=== PATIENT | male | born 1960 | race Caucasian/White ===

== ENCOUNTER 2022-06-26 07:45 | Inpatient (IN) | payer OTHER, SELFPAY ==
[2022-06-26] VITALS (18 sets, daily range): BP systolic 96–152; BP diastolic 53–80; PULSE 66–111; RESP 18–25; TEMP 36.7–37.6; O2SAT 91–99; BMI 30.4; BMI 30.6; BMI 31.4
--- NOTE | 2022-06-26 07:47 | XR_ITS ---
FINAL REPORT CLINICAL HISTORY: SOA, COPD FINDINGS: PORTABLE CHEST The heart is normal in size. The mediastinum is unremarkable. There is dense right lower lobe consolidation medially which is consistent with acute pneumonia. The left lung is clear. There is no pneumothorax. IMPRESSION: Dense right lower lobe consolidation medially, consistent with acute pneumonia. Reviewed, Interpreted and Dictated by Bryan Hernadez MD Transcribed by Radha Maynard Authenticated and . [facility]
--- NOTE | 2022-06-26 07:48 | ECG_ITS ---
APPROVED REPORT Exam: Resting ECG HR:109 bpm ECG Measurements Heart Rate 109 AXES QRSd 87 QRS 40 QT 307 T 89 QTc 371 Conclusion SUPRAVENTRICULAR TACHYCARDIA LOW QRS VOLTAGE IN EXTREMITY LEADS [QRS DEFLECTION < 0.5 mV IN LIMB LEADS] SEPTAL MYOCARDIAL INFARCTION , OF INDETERMINATE AGE [40+ ms Q WAVE IN V1/V2] ABNORMAL ECG UNCONFIRMED REPORT Electronically signed by : Brayan Price MD 06/29/2022 16:51:14
[2022-06-26 07:58] LABS: Basophils # 0.1 K/mm3 (0-0.2); Basophils % 0.4 % (0.1-2.0); Eosinophils # 0.1 K/mm3 (0.0-0.4); Eosinophils % 0.6 % (0.1-12.0); Hematocrit 50.6 % (42.0-52.0); Hemoglobin 16.4 g/dL (14.1-18.0); Lymphocytes # 1.9 K/mm3 (0.7-4.5); Lymphocytes % 9.7 % (10-50); Mean Corpuscular HGB Conc 32.4 g/dL (31.8-35.4); Mean Corpuscular Volume 92.4 fl (80-94); Monocytes # 1.1 K/mm3 (0.1-1.0); Monocytes % 5.6 % (1.7-9.3); Neutrophils # 16.3 K/mm3 (1.8-7.8); Neutrophils % 83.7 % (37.0-80.0); Platelet Count 178 K/mm3 (142-424); Red Blood Count 5.48 M/mm3 (4.60-6.20); Red Cell Distribution Width 15.1 % (11.5-17.5); White Blood Count 19.5 K/mm3 (4.8-10.8)
[2022-06-26 08:00] LABS: VBG Base Excess -5.2 mmol/L (-2.4-2.3); VBG PCO2 61.7 mmol/L (35-51); VBG PO2 53.7 mmol/L (28-40); VBG Total CO2 24.9 mmol/L (23-27)
--- NOTE | 2022-06-26 08:00 | PC.NURSE ---
portable CXR at BS
--- NOTE | 2022-06-26 08:03 | PC.NURSE ---
FRANKI JORDAN at
[2022-06-26 08:05] LABS: VBG PH 7.19 mmol/L (7.31-7.41)
[2022-06-26 08:06] LABS: MANUAL DIFFERENTIAL MANUAL DIFFERENTIAL (MANUAL DIFF)
--- NOTE | 2022-06-26 08:11 | HMH.EDGENADL ---
Discharge Plan Disposition Patient Disposition: Admitted As Inpatient Clinical Impressions Clinical Impression: Asthma exacerbation in COPD, CAP (community acquired pneumonia), Acute hypercapnic respiratory failure, Acute respiratory failure with hypoxia, Severe sepsis, Acute renal insufficiency Discharge ED Provider: Serene Schneider General Adult HPI General Chief complaint: Shortness of Breath/Dyspnea Stated complaint: COPD exacerbation Time Seen by Provider: 06/26/22 08:14 History of Present Illness HPI narrative: Patient is a 62-year-old male with a history of COPD presents with 2 days of worsening of his symptoms. States that he is chronically dyspneic at rest chronically has wheezing but over the last 2 days has had significant right lateral chest wall pain dyspnea increasing wheezing increasing productive sputum and profound dyspnea even at rest. States that this feels similar to pneumonia episodes has had in the past and COPD exacerbations. Denies any centralized chest pain any radiation. Did state that he had a fever last night up to 102 took Tylenol ibuprofen. Has not had any antipyretics today. No history of PE or DVT no history of GA he does have a history of diabetes. Related Data Allergies Allergy/AdvReac Type Severity Reaction Status Date / Time Penicillins Allergy Intermediate Rash Verified 06/26/22 08:33 [facility] Disclaimer: The information contained in this section may have been updated after the patient was seen, as this information can be updated by other users. Social History Smoking Status: Unknown if ever smoked alcohol intake: never current occupational status: other Travel in the last 8 weeks: None ROS Obtained: Yes All systems reviewed & no additional complaints except as documented Physical Exam General General appearance: alert and other (In distress) Respiratory Respiratory exam: Present other (In respiratory distress, speaking in fragmented sentences, poor air movement, diffuse expiratory wheezing, prolonged expiratory phase, ox saturations in the low 90s on 2 L nasal cannula) Cardiovascular Cardiovascular exam: Present tachycardia Neurological Exam Neurological exam: Present alert and oriented X3 Medical Decision Making Joseph Inquiry Pt receiving controlled substance: No Joseph was queried for this patient: No Lab Data Lab Results 06/26/22 07:45: WBC 19.5 H, RBC 5.48, Hgb 16.4, Hct 50.6, MCV 92.4, MCH 30.0, MCHC 32.4, RDW 15.1, Plt Count 178, MPV 8.0, Neut % (Auto) 83.7 H, Lymph % (Auto) 9.7 L, Lewis % (Auto) 5.6, Eos % (Auto) 0.6, Baso % (Auto) 0.4, Neut # (Auto) 16.3 H, Lymph # (Auto) 1.9, Lewis # (Auto) 1.1 H, Eos # (Auto) 0.1, Baso # (Auto) 0.1, Total Counted 100, Neutrophils % (Manual) 80 H, Lymphocytes % (Manual) 10, Monocytes % (Manual) 10 H, Platelet Estimate Normal, RBC Morphology Normal 06/26/22 07:45: Sodium 135 L, Potassium 4.7, Chloride 96 L, Carbon Dioxide 28, Anion Gap 15.7 H, BUN 25 H, Creatinine 1.30 H, Estimated Creat Clear 93, Estimated GFR 56 L, Est GFR ( Amer) 68, Glucose 183 H, Calcium 9.1, Total Bilirubin 1.3, AST 29, ALT 27, Alkaline Phosphatase 127 H, Troponin I < 0.01, Total Protein 8.4 H, Albumin 4.4, Globulin 4.0 H, Albumin/Globulin Ratio 1.1 06/26/22 07:47: VBG pH 7.19 L, VBG pCO2 61.7 H, VBG pO2 53.7 H, VBG HCO3 23.0, VBG Total CO2 24.9, VBG O2 Saturation 85.0 H, VBG Base Excess -5.2 L 06/26/22 07:55: Lactate 2.4 H 06/26/22 07:55: Procalcitonin 0.866 Result diagrams: 06/26/22 07:45 06/26/22 07:45 Orders (Tests/Meds): ED MEDICATIONS Generic Name Dose Route Start Last Admin Trade Name Freq PRN Reason Stop Dose Admin Sodium Chloride 1,000 mls @ 999 mls/hr 06/26/22 08:15 06/26/22 08:21 Sod Chlor 0.9% 1000ml Bag IV 06/26/22 09:15 999 mls/hr .Q1H1M ARIELA Administration Magnesium Sulfate 2 gm in 50 mls @ 50 mls/hr 06/26/22 08:07 06/26/22 08:21 Magnesium Sulfate 2gm/50ml Premix IV 06/26/22 09:06
--- NOTE | 2022-06-26 08:11 | PC.NURSE ---
Respiratory at BS
[2022-06-26 08:15] LABS: Alanine Aminotransferase 27 U/L (12-78); Albumin Level 4.4 g/dl (3.5-5.0); Albumin/Globulin Ratio 1.1 (1.1-1.8); Alkaline Phosphatase 127 U/L (38-126); Anion Gap 15.7 mEq/L (5-15); Aspartate Amino Transferase 29 U/L (17-59); Bilirubin,Total 1.3 mg/dl (0.2-1.3); Blood Urea Nitrogen 25 mg/dl (9-20); Calcium 9.1 mg/dl (8.4-10.2); Carbon Dioxide 28 mmol/L (22.0-30.0); Chloride 96 mmol/L (98-107); Creatinine Clearance Estimated 93 mL/min (50-200); Estimated Glomerular Filt Rate 56 ml/min (>60); GFR (African American) 68 ML/MIN (>60); Glucose 183 mg/dl (74-100); Potassium 4.7 mmoL/L (3.5-5.1); Sodium 135 mmol/L (136-145); Total Protein,Serum 8.4 g/dl (6.3-8.2)
[2022-06-26 08:19] LABS: Lactic Acid 2.4 mmol/L (0.7-2.1)
[2022-06-26 08:33] LABS: Troponin I < 0.01 ng/ml (0.00-0.034)
[2022-06-26 08:39] LABS: Procalcitonin 0.866 ng/mL (0.0-2.0)
[2022-06-26 08:40] LABS: Lymphocytes % 10 % (10-50); Monocytes % 10 % (2-9); Neutrophils % 80 % (42-76); Platelet Estimate Normal; RBC Morphology Normal; Total Cells Counted 100
[2022-06-26 09:15] LABS: Coronavirus 19, PCR Not Detected (NotDetected); Influenza A, PCR Not Detected (NotDetected); Influenza B, PCR Not Detected (NotDetected)
--- NOTE | 2022-06-26 09:28 | EXP.HP ---
History of Present Illness *Admission Date: 06/26/22 *Reason for visit:: Short of breath, fever *History of present illness: Mr. Davila is a 62-year-old male with history of COPD, diabetes, hypertension who presented to the ER with 2 to 3 days of worsening shortness of breath, weakness, fever. Presented to the ER via EMS because he was more weak at home and unable to get up and go to the car. His was worried about his condition, stated he was pale, short of breath, having a hard time breathing. Reports that he has been chronically short of breath at rest. Has had worsening wheezing over the past couple days and some right lateral chest pain, worse with cough. Also reports that he has had similar pneumonia episodes in the past with COPD exacerbations. No central chest pain, confusion, nausea, vomiting. Tmax fever last night 102 per his report. Initial work-up concerning for right lower lobe pneumonia on chest x-ray and leukocytosis of 19,000. Medicine consulted for admission. After arriving to the floor, patient is accompanied by his . She states he is looking better after fluids, antibiotics, breathing treatments, and BiPAP. He is currently stable on nasal cannula oxygen. Able to give a good history. [facility] Disclaimer: The information contained in this section may have been updated after the patient was seen, as this information can be updated by other users. Medical History (Updated 06/26/22 @ 11:22 by Will Lynch MD) COPD (chronic obstructive pulmonary disease) DDD (degenerative disc disease) Diabetes mellitus, type 2 Edema Hepatitis C Hepatitis C virus infection cured after antiviral drug therapy History of gastroesophageal reflux (GERD) Hypertension Osteoarthritis Psoriasis Surgical History H/O arthroscopy of right knee Family History Family history of acute congestive heart failure Family history of cancer Family history of hypertension Family history of epilepsy Family history of diabetes mellitus type II Family history of myocardial infarction Social History Smoking Status: Current some day smoker alcohol intake: never current occupational status: retired Travel in the last 8 weeks: None Review of Systems Review of Systems Review of systems (narrative): 14 point review of systems performed, pertinent positives and negatives as per HPI Meds Home Medications and Allergies Home Medications Medication Instructions Recorded Confirmed Type albuterol 90 mcg/actuation aerosol 2 mcg inhalation NEEDED PRN copd 06/26/22 06/26/22 History inhaler budesonide-formoterol HFA 160 2 puff inhalation BID Breathing 06/26/22 06/26/22 History mcg-4.5 mcg/actuation aerosol problems inhaler budesonide-formoterol HFA 160 2 puff inhalation DAILY COPD 06/26/22 06/26/22 History mcg-4.5 mcg/actuation aerosol inhaler buprenorphine 8 mg-naloxone 2 mg 2 film sublingual DAILY Opioid 06/26/22 06/26/22 History sublingual film dependence empagliflozin 25 mg tablet 25 mg PO DAILY Diabetes 06/26/22 06/26/22 History (Jardiance) lisinopril 20 mg tablet 20 mg PO DAILY Blood pressure 06/26/22 06/26/22 History metformin 1,000 mg tablet 1,000 mg PO BID Diabetes 06/26/22 06/26/22 History sitagliptin phosphate 100 mg 100 mg PO DAILY Diabetes 06/26/22 06/26/22 History tablet (Januvia) New Prescriptions to Start Prescriptions: Allergies Allergy/AdvReac Type Severity Reaction Status Date / Time Penicillins Allergy Intermediate Rash Verified 06/26/22 08:33 Exam Data for Last 24 hours Vital signs and Labs for Last 24 Hours: Temp Pulse Resp BP Pulse Ox 99 F 96 H 24 97/53 L 95 06/26/22 07:46 06/26/22 09:10 06/26/22 09:10 06/26/22 09:10 06/26/22 09:10 Laboratory Results - last 24 hr 06/26/22 07:45: WBC 19
[2022-06-26 09:30] LABS: Hemoglobin A1C 6.8 % (4.0-6.0)
--- NOTE | 2022-06-26 09:36 | PC.NURSE ---
Patient report called to ARBEN Hardin
--- NOTE | 2022-06-26 09:43 | PC.NURSE ---
0930: Notified attending patient would be short on 30mL/kg bolus. Map is >65 and patient seems to be profusing well. NAD, VSS otherwise. Notified infection control nurse regarding Sepsis diagnosis chart review.
[2022-06-26 10:06] LABS: ABG Oxygen Saturation 97 % (90-100); ABG PCO2 42.8 mmhg (35.0-45.0); ABG PH 7.27 mmol/L (7.35-7.45); ABG PO2 96.9 mmhg (80-100); ABG TCO2 20.3 mmhg (23-27)
[2022-06-26 10:14] LABS: Oxygen 40% %; Tidal Volume 14/6; Vent Rate 20
[2022-06-26 10:15] LABS: Allen's Test acceptable
--- NOTE | 2022-06-26 10:27 | PC.NURSE ---
Pt arrived to the floor at this time.
[2022-06-26 11:44] LABS: Troponin I < 0.01 ng/ml (0.00-0.034)
--- NOTE | 2022-06-26 11:50 | PC.NURSE ---
Notified pulmonolgy office of consult on pt. Spoke with
[2022-06-26 12:06] LABS: POC Glucose,Bedside 228 (70-110)
[2022-06-26 12:11] LABS: Reflex Lactic Add Lactic Reflex
[2022-06-26 12:56] LABS: Lactic Acid Follow Up (RFLX 1) 2.2 mmol/L (0.7-2.1)
[2022-06-26 14:34] LABS: Reflex Lactic (2 hrs) Add Lactic Reflex
[2022-06-26 15:16] LABS: Troponin I < 0.01 ng/ml (0.00-0.034)
[2022-06-26 15:32] LABS: Lactic Acid Follow up (RFLX 2) 3.7 mmol/L (0.7-2.1)
--- NOTE | 2022-06-26 16:44 | EXP.PULM.CON ---
History of Present Illness History of present illness: Mr. Laboy is a 62-year-old male current smoker greater than 83-oziy-zdit smoking she carries a history of psoriasis currently not on immunosuppressive medications presented to hospital with worsening respiratory distress found to be needing increasing oxygen requirements and pulmonary was called for further evaluation. [facility] Disclaimer: The information contained in this section may have been updated after the patient was seen, as this information can be updated by other users. Medical History (Updated 06/26/22 @ 11:22 by Will Lynch MD) COPD (chronic obstructive pulmonary disease) DDD (degenerative disc disease) Diabetes mellitus, type 2 Edema Hepatitis C Hepatitis C virus infection cured after antiviral drug therapy History of gastroesophageal reflux (GERD) Hypertension Osteoarthritis Psoriasis Surgical History H/O arthroscopy of right knee Family History Family history of acute congestive heart failure Family history of cancer Family history of hypertension Family history of epilepsy Family history of diabetes mellitus type II Family history of myocardial infarction Social History Smoking Status: Current some day smoker alcohol intake: never current occupational status: retired Travel in the last 8 weeks: None Review of Systems Constitutional Constitutional: Reports anorexia, Reports body ache(s) and Reports fatigue Eyes Eyes: Denies eye discharge, Denies dry eyes, Denies irritation and Denies itchy eyes ENT Ears, Nose, Mouth, and Throat: Denies epistaxis, Denies facial pain, Denies lip swelling and Denies throat swelling *Cardiovascular Cardiovascular: Reports dyspnea and Reports dyspnea on exertion *Respiratory Respiratory: Reports chest congestion, Reports cough, Reports dyspnea, Reports dyspnea on exertion, Reports excessive phlegm production, Denies hemoptysis, Denies pain on inspiration and Reports wheezing *Gastrointestinal Gastrointestinal: Denies abdominal pain, Denies belching and Denies cramping *Musculoskeletal Musculoskeletal: Reports back pain, Reports myalgias and Reports other (No small joint swelling or Pain) Psychiatric Psychiatric: Denies homicidal ideation and Denies suicidal ideation Endocrine Endocrine: Reports fatigue and Denies heat intolerance Hematologic/Lymphatic Hematologic/Lymphatic: Denies easy bleeding and Denies lymphadenopathy Allergic/Immunologic Allergic/Immunologic: Denies itchy eyes, Denies lip swelling, Denies throat swelling and Reports wheezing Pulmonology Exam Inpatient Vital signs and Labs for Last 24 Hours: Temp Pulse Resp BP Pulse Ox FiO2 98.9 F 85 22 118/67 94 L 4 06/26/22 16:00 06/26/22 16:00 06/26/22 16:00 06/26/22 16:00 06/26/22 16:00 06/26/22 16:00 Laboratory Results - last 24 hr 06/26/22 07:45: WBC 19.5 H, RBC 5.48, Hgb 16.4, Hct 50.6, MCV 92.4, MCH 30.0, MCHC 32.4, RDW 15.1, Plt Count 178, MPV 8.0, Neut % (Auto) 83.7 H, Lymph % (Auto) 9.7 L, [place] % (Auto) 5.6, Eos % (Auto) 0.6, Baso % (Auto) 0.4, Neut # (Auto) 16.3 H, Lymph # (Auto) 1.9, [place] # (Auto) 1.1 H, Eos # (Auto) 0.1, Baso # (Auto) 0.1, Total Counted 100, Neutrophils % (Manual) 80 H, Lymphocytes % (Manual) 10, Monocytes % (Manual) 10 H, Platelet Estimate Normal, RBC Morphology Normal 06/26/22 07:45: Sodium 135 L, Potassium 4.7, Chloride 96 L, Carbon Dioxide 28, Anion Gap 15.7 H, BUN 25 H, Creatinine 1.30 H, Estimated Creat Clear 93, Estimated GFR 56 L, Est GFR ( Amer) 68, Glucose 183 H, Calcium 9.1, Total Bilirubin 1.3, AST 29, ALT 27, Alkaline Phosphatase 127 H, Troponin I < 0.01, Total Protein 8.4 H, Albumin 4.4, Globulin 4.0 H, Albumin/Globulin Ratio 1.1 06/26/22 07:45: Hemoglobin A1c 6.8 H 06/26/22 07:47: VBG pH 7.19 L, VBG pCO2 61.7 H, VBG pO2 53.7 H, VBG HCO3 23.0, V
[2022-06-26 16:46] LABS: POC Glucose,Bedside 406 (70-110)
[2022-06-26 20:26] LABS: POC Glucose,Bedside 295 (70-110)
[2022-06-27] VITALS (12 sets, daily range): BP systolic 107–123; BP diastolic 61–71; PULSE 68–95; RESP 15–18; TEMP 36.8–37.1; O2SAT 87–97; BMI 32.2
[2022-06-27 05:54] LABS: POC Glucose,Bedside 221 (70-110)
[2022-06-27 06:23] LABS: Basophils % 0.1 % (0.1-2.0); Hematocrit 45.2 % (42.0-52.0); Lymphocytes # 0.8 K/mm3 (0.7-4.5); Lymphocytes % 4.9 % (10-50); Mean Corpuscular HGB Conc 31.1 g/dL (31.8-35.4); Mean Corpuscular Hemoglobin 29.2 pg (27.0-31.2); Mean Corpuscular Volume 93.8 fl (80-94); Mean Platelet Volume 8.3 fl (7.4-10.4); Monocytes % 5.7 % (1.7-9.3); Neutrophils # 14.9 K/mm3 (1.8-7.8); Neutrophils % 89.2 % (37.0-80.0); Platelet Count 192 K/mm3 (142-424); Red Blood Count 4.82 M/mm3 (4.60-6.20); White Blood Count 16.7 K/mm3 (4.8-10.8)
[2022-06-27 06:24] LABS: Alanine Aminotransferase 32 U/L (12-78); Albumin Level 3.6 g/dl (3.5-5.0); Albumin/Globulin Ratio 1.1 (1.1-1.8); Alkaline Phosphatase 130 U/L (38-126); Anion Gap 15.4 mEq/L (5-15); Aspartate Amino Transferase 42 U/L (17-59); Bilirubin,Total 0.4 mg/dl (0.2-1.3); Blood Urea Nitrogen 26 mg/dl (9-20); Calcium 8.7 mg/dl (8.4-10.2); Carbon Dioxide 26 mmol/L (22.0-30.0); Chloride 101 mmol/L (98-107); Creatinine Clearance Estimated 124 mL/min (50-200); Estimated Glomerular Filt Rate 86 ml/min (>60); GFR (African American) 103 ML/MIN (>60); Globulin 3.2 g/dL (1.3-3.2); Glucose 223 mg/dl (74-100); Magnesium 2.8 mg/dl (1.6-2.3); Potassium 4.4 mmoL/L (3.5-5.1); Sodium 138 mmol/L (136-145); Total Protein,Serum 6.8 g/dl (6.3-8.2)
[2022-06-27 06:25] LABS: MANUAL DIFFERENTIAL MANUAL DIFFERENTIAL (MANUAL DIFF)
[2022-06-27 06:53] LABS: Lymphocytes % 14 % (10-50); Monocytes % 2 % (2-9); Neutrophils % 84 % (42-76); Platelet Estimate Normal; RBC Morphology Normal; Total Cells Counted 100
[2022-06-27 06:59] LABS: NT Pro Brain Natriuretic Pep. 1450 pg/mL (0-125)
[2022-06-27 07:07] LABS: Hemoglobin 14.1 g/dL (14.1-18.0)
--- NOTE | 2022-06-27 09:44 | EXP.PULM.PN ---
Subjective *Date: 06/27/22 *Time: 12:07 Interval history: No acute respiratory vents overnight. Patient admits improvement in his respiratory status. Pulmonology Exam Inpatient Vital signs and Labs for Last 24 Hours: Temp Pulse Resp BP Pulse Ox FiO2 98.7 F 80 15 111/61 91 L 36 06/27/22 08:00 06/27/22 04:40 06/27/22 04:00 06/27/22 04:00 06/27/22 04:00 06/26/22 17:37 Laboratory Results - last 24 hr 06/26/22 07:49: SARS-CoV-2 (PCR) Not detected, Influenza A Untype (PCR) Not detected, Influenza Type B (PCR) Not detected 06/26/22 10:00: Specimen Source r radial, O2 % 40%, ABG pH 7.27 L, ABG pCO2 42.8, ABG pO2 96.9, ABG HCO3 19.0 L, ABG Total CO2 20.3 L, ABG O2 Saturation 97, ABG Base Excess -8.0 L, Cooper Test acceptable, Vent Rate 20, Tidal Volume 14/6 06/26/22 11:00: Troponin I < 0.01 06/26/22 11:48: POC Glucose 228 H 06/26/22 12:30: Lactate 2.2 H 06/26/22 14:05: Troponin I < 0.01 06/26/22 15:10: Lactate 3.7 H 06/26/22 16:36: POC Glucose 406 H* 06/26/22 20:18: POC Glucose 295 H 06/27/22 05:27: NT-Pro-B Natriuret Pep 1450 H 06/27/22 05:27: WBC 16.7 H, RBC 4.82, Hgb 14.1 D, Hct 45.2, MCV 93.8, MCH 29.2, MCHC 31.1 L, RDW 15.0, Plt Count 192, MPV 8.3, Neut % (Auto) 89.2 H, Lymph % (Auto) 4.9 L, [place] % (Auto) 5.7, Eos % (Auto) 0.0 L, Baso % (Auto) 0.1, Neut # (Auto) 14.9 H, Lymph # (Auto) 0.8, Spencer # (Auto) 1.0, Eos # (Auto) 0.0, Baso # (Auto) 0.0, Total Counted 100, Neutrophils % (Manual) 84 H, Lymphocytes % (Manual) 14, Monocytes % (Manual) 2, Platelet Estimate Normal, RBC Morphology Normal 06/27/22 05:27: Sodium 138, Potassium 4.4, Chloride 101, Carbon Dioxide 26, Anion Gap 15.4 H, BUN 26 H, Creatinine 0.90 D, Estimated Creat Clear 124, Estimated GFR 86, Est GFR ( Amer) 103 D, Glucose 223 H D, Calcium 8.7, Magnesium 2.8 H, Total Bilirubin 0.4, AST 42 D, ALT 32, Alkaline Phosphatase 130 H, Total Protein 6.8, Albumin 3.6 D, Globulin 3.2, Albumin/Globulin Ratio 1.1 06/27/22 05:45: POC Glucose 221 H I & O for Labs for Last 24 Hours: Intake & Output 06/24/22 06/25/22 06/26/22 06/27/22 23:59 23:59 23:59 23:59 Intake Total 2830 / 2950 600 / 600 Output Total 3025 / 3025 1350 / 1350 Balance -195 / -75 -750 / -750 Weight 244 lb 9 oz 251 lb 6 oz Microbiology Reports for the Last 24 Hours: Microbiology 06/26/22 20:30 Sputum - Expectorated Sputum Gram Stain - Final Constitutional: Present moderate distress Head: Present normocephalic and atraumatic ENT: Present normal exam, normal oropharynx and mucous membranes moist Neck: Present normal inspection and full ROM Respiratory: Present prolonged expiratory phase, respiratory distress, wheezes and able to speak in complete sentences; Absent accessory muscle use Cardiac: Present S1/S2, Tachycardia and radial pulses present GI: Present soft and distention; Absent tenderness or guarding Skin: Present intact; Absent cyanosis or jaundice Neuro: Present alert, awake and oriented x 3 Extremities: Present normal inspection; Absent clubbing or cyanosis Psychiatric: Present normal affect and cooperative Assessment and Plan *Assessment and plan (1) CAP (community acquired pneumonia): Status: Acute Category: Medical Code(s): J18.9 - Pneumonia, unspecified organism (2) Acute respiratory failure with hypoxia: Status: Acute Category: Medical Code(s): J96.01 - Acute respiratory failure with hypoxia Plan Mr. Laboy is a 62-year-old male current smoker greater than 90-ftrl-dgsg smoking she carries a history of psoriasis currently not on immunosuppressive medications presented to hospital with worsening respiratory distress found to be needing increasing oxygen requirements and pulmonary was called for further evaluation. Patient admits frequent episodes of respiratory infections around 3-4 times per year. His most recent flexion was late summer 2021 on did not recovered completely from that. No prior imaging available for review.
--- NOTE | 2022-06-27 10:41 | XR_ITS ---
FINAL REPORT CLINICAL HISTORY: Pneumonia COMPARISON: 06/26/2022 FINDINGS: The heart size is normal. The mediastinum is normal. Localized airspace opacity right base, similar to prior study and probably due to acute pneumonia or aspiration. Chronic changes in the left lung. There are no pleural effusions. There is no pneumothorax. There is no osseous abnormality. IMPRESSION: Localized airspace opacity right base. Reviewed, Interpreted and Dictated by Bryan Hernadez MD Transcribed by Cynthia Collier Authenticated and [facility]
[2022-06-27 10:54] LABS: POC Glucose,Bedside 232 (70-110)
--- NOTE | 2022-06-27 13:36 | EXP.DC.SUM ---
General Admission date:: 06/26/22 Discharge date: 06/27/22 HPI HPI HPI: Mr. Davila is a 62-year-old male with history of COPD, diabetes, hypertension who presented to the ER with 2 to 3 days of worsening shortness of breath, weakness, fever. Presented to the ER via EMS because he was more weak at home and unable to get up and go to the car. His was worried about his condition, stated he was pale, short of breath, having a hard time breathing. Reports that he has been chronically short of breath at rest. Has had worsening wheezing over the past couple days and some right lateral chest pain, worse with cough. Also reports that he has had similar pneumonia episodes in the past with COPD exacerbations. No central chest pain, confusion, nausea, vomiting. Tmax fever last night 102 per his report. Initial work-up concerning for right lower lobe pneumonia on chest x-ray and leukocytosis of 19,000. Medicine consulted for admission. After arriving to the floor, patient is accompanied by his . She states he is looking better after fluids, antibiotics, breathing treatments, and BiPAP. He is currently stable on nasal cannula oxygen. Able to give a good history. Hospital Course Hospital Course Hospital Course: 62-year-old male who presented with severe sepsis, found to have right lower lobe pneumonia.? Admitted for oxygen requirement, IV antibiotics, and further management.? Initially required BiPAP in the ER, improved with his blood gas over 2 hours, transition to nasal cannula oxygen.? Will consult pulmonology, patient would like to establish for future follow-up.? Case discussed with the ER, medicine consulted for admission, decision made to admit for further management.? Problems addressed as follows: Severe sepsis Acute hypercapnic and hypoxemic respiratory failure Community-acquired pneumonia COPD -Initiated on BiPAP for 2 hours on admission, improved blood gas with normalization of his PCO2. Patient weaned to nasal cannula oxygen. Tolerating 2 to 3 L during admission. Day of discharge oxygen saturation was 87% at rest. We will continue 2 L upon discharge until patient's condition improves. Pulmonology consulted during admission. Recommend transitioning to levofloxacin to complete 10-day course of 750 mg orally daily. Continue DuoNebs on discharge, nebulizer sent for patient. Sputum culture still pending at discharge. Negative so far. We will plan to have patient follow-up with pulmonology clinic in 1 week. Repeat imaging at that time. Stable for discharge home. Hypertension: Hypotensive on admission. Responded well to fluids. Held hypertensive regimen during admission. Okay to resume at discharge. Diabetes -A1c obtained: 6.8 appears well controlled. Treated with sliding scale insulin during admission. Resume home regimen at discharge. LIS versus CKD -Creatinine elevated to 1.3, BUN 25, appears dry on admission. Creatinine normalized to 0.9. Suspect this is patient's baseline. History of opiate dependence, on Suboxone DDD -Continue home Suboxone regimen Exam Data for Last 24 hours Vital signs and Labs for Last 24 Hours: Temp Pulse Resp BP Pulse Ox FiO2 98.5 F 74 18 117/63 87 L 36 06/27/22 11:53 06/27/22 11:53 06/27/22 11:53 06/27/22 11:53 06/27/22 12:55 06/26/22 17:37 Laboratory Results - last 24 hr 06/26/22 14:05: Troponin I < 0.01 06/26/22 15:10: Lactate 3.7 H 06/26/22 16:36: POC Glucose 406 H* 06/26/22 20:18: POC Glucose 295 H 06/27/22 05:27: NT-Pro-B Natriuret Pep 1450 H 06/27/22 05:27: WBC 16.7 H, RBC 4.82, Hgb 14.1 D, Hct 45.2, MCV 93.8, MCH 29.2, MCHC 31.1 L, RDW 15.0, Plt Count 192, MPV 8.3, Neut % (Auto) 89.2 H, Lymph % (Auto) 4.9 L, [place] % (Auto) 5.7, Eos % (Auto) 0.0 L, Baso % (Auto) 0.1, Neut # (Auto) 14.9 H, Lymph # (Auto) 0.8, [place] # (Auto) 1.0, Eos # (Auto) 0.0, Baso # (Auto) 0.0, Total Counted 100, Neutrophils % (Manual) 84 H, Lymphocytes % (Manual) 14, Monocytes % (Man
--- NOTE | 2022-06-28 13:51 | CARE MANAGER ---
Spoke with patient for post-discharge phone interview, no issues noted.
== END 2022-06-27 14:37 | disposition home or self-care (01) | DRG 193 ==
LOC: ER 08:57 → 2ND 09:52
PROVIDERS: Internal Medicine Pulmonary Disease; Admitting Provider Internal Medicine Adolescent Medicine; Emergency Provider Student in an Organized Health Care Education/Training Program; PCP Family Medicine; Visit Provider Internal Medicine Adolescent Medicine
DX: J18.9 Pneumonia, unspecified organism (principal); J96.01 Acute respiratory failure with hypoxia; J96.02 Acute respiratory failure with hypercapnia; J44.0 Chronic obstructive pulmonary disease with (acute) lower respiratory infection; L40.9 Psoriasis, unspecified; E11.8 Type 2 diabetes mellitus with unspecified complications; K21.9 Gastro-esophageal reflux disease without esophagitis; B19.20 Unspecified viral hepatitis C without hepatic coma; I10 Essential (primary) hypertension; F17.210 Nicotine dependence, cigarettes, uncomplicated
CPT/HCPCS: 36415; 71045; 80053; 82803; 82962; 83036; 83605; 83735; 83880; 84145; 84484; 85007; 85025; 87040; 87070; 87077; 87186; 87205; 93005; 94640; 94660; 99291; C9803; J0456; J0574; J0696; J3475; U0003; U0005

== ENCOUNTER → 2022-07-04 12:08 | Outpatient (CLI) | payer OTHER, SELFPAY ==
--- NOTE | 2022-07-04 12:12 | XR_ITS ---
FINAL REPORT CLINICAL HISTORY: Pneumonia COMPARISON: 06/27/2022 FINDINGS: PA and lateral views of the chest were obtained. The cardiac and mediastinal silhouettes are within normal limits. There continues to be right middle lobe airspace disease which may represent pneumonia. A central obstructing lesion is not excluded. Recommend short-term follow-up or chest CT. There is no pleural effusion or pneumothorax. No acute osseous abnormality is identified. IMPRESSION: Continued middle lobe airspace disease, may represent pneumonia. A central obstructing lesion is not excluded. Recommend either short-term follow-up or chest CT. Reviewed, Interpreted and Dictated by Melinda Delong MD Transcribed by Radha Maynard Authenticated and [facility]
== END ==
LOC: RAD 12:09
PROVIDERS: PCP Family Medicine; Visit Provider Internal Medicine Pulmonary Disease
DX: J18.9 Pneumonia, unspecified organism (principal)
CPT/HCPCS: 71046

== ENCOUNTER → 2022-08-01 07:38 | Outpatient (CLI) | payer OTHER, SELFPAY | PROVIDERS: PCP Family Medicine; Visit Provider Internal Medicine Pulmonary Disease | DX: R06.09 Other forms of dyspnea (principal) | CPT/HCPCS: 94060; 94618; 94726; 94727; 94729 ==

== ENCOUNTER → 2023-03-27 15:19 | Outpatient (CLI) | payer BC, SELFPAY ==
--- NOTE | 2023-03-27 15:19 | CT_ITS ---
FINAL REPORT TECHNIQUE: Axial images were obtained from the lung apex to the mid abdomen by computed tomography. This study was performed with techniques to keep radiation doses as low as reasonably achievable (ALARA). Individualized dose reduction techniques using automated exposure control or adjustment of mA and/or kV according to the patient's size were employed. CLINICAL HISTORY: lung cancer screening former smoker x 1 year 1 ppd x 20 yrs FINDINGS: CHEST CT LOW DOSE CTDI vol (mGy): 2.90 DLP (mGy-cm): 118.81 There is moderate coronary artery calcification. There is no axillary adenopathy. There is no hilar or mediastinal adenopathy. The heart is normal in size. There is no pericardial or pleural effusion. Lung window images demonstrate no suspicious infiltrate or nodule. There are scattered calcified granulomas in both lungs. Limited images of the upper abdomen are unremarkable. IMPRESSION: Lung RADS category 1. Recommend 12 month follow-up low-dose chest CT. Reviewed, Interpreted and Dictated by Bryan Hernadez MD Transcribed by Dawn Morris Authenticated and [facility]
== END ==
PROVIDERS: PCP Family Medicine; Visit Provider Internal Medicine Pulmonary Disease
DX: F17.210 Nicotine dependence, cigarettes, uncomplicated (principal)
CPT/HCPCS: 71271

== ENCOUNTER 2023-04-10 06:08 | Emergency (ER) | payer BC, SELFPAY ==
[2023-04-10] VITALS (7 sets, daily range): BP systolic 107–140; BP diastolic 50–66; PULSE 74–86; RESP 16–22; TEMP 36.8; O2SAT 91–96; BMI 31.2
--- NOTE | 2023-04-10 06:25 | ECG_ITS ---
APPROVED REPORT Exam: Resting ECG HR:80 bpm ECG Measurements Heart Rate 80 AXES MS 189 P 81 QRSd 96 QRS 42 QT 368 T 79 QTc 404 Conclusion SINUS RHYTHM WITH FREQUENT VENTRICULAR PREMATURE COMPLEXES ABNORMAL RHYTHM ECG UNCONFIRMED REPORT Electronically signed by : Brayan Price MD 04/11/2023 20:34:50
--- NOTE | 2023-04-10 06:26 | XR_ITS ---
FINAL REPORT CLINICAL HISTORY: shortness of air, prod cough COMPARISON: 07/04/2022 FINDINGS: A single portable view of the chest was obtained. The heart size and pulmonary vascularity are within normal limits. The mediastinum is within normal limits. There is mild atelectasis or scarring in the lung bases. The bony thorax is intact. IMPRESSION: Mild atelectasis or scarring in the lung bases. Reviewed, Interpreted and Dictated by Lionel Hahn III, MD Transcribed by Cynthia Collier Authenticated and [facility]
--- NOTE | 2023-04-10 06:27 | PC.NURSE ---
call placed to resp for vbg
--- NOTE | 2023-04-10 06:28 | PC.NURSE ---
call placed to rad for portable chest
--- NOTE | 2023-04-10 06:33 | HMH.EDGENADL ---
Discharge Plan Disposition Patient Disposition: Home, Self-Care Prescriptions Prescriptions: New dexamethasone 6 mg tablet 6 mg PO DAILY Qty: 5 0RF Paxlovid 300 mg (150 mg x 2)-100 mg tablets,dose pack See Rx Instructions PO .COMPLEX Qty: 30 0RF Rx Instructions: take TWO 150 mg tablets of nirmatrelvir with ONE 100 mg tablet of ritonavir twice daily for 5 days No Action lisinopril 20 mg tablet 20 mg PO DAILY Patient Comments: TAKE 1 TABLET BY MOUTH EVERY DAY metformin 1,000 mg tablet 1,000 mg PO BID Patient Comments: TAKE 1 TABLET BY MOUTH TWICE A DAY WITH MEALS Jardiance 25 mg tablet 25 mg PO DAILY Patient Comments: TAKE 1 TABLET BY MOUTH EVERY DAY albuterol sulfate 90 mcg/actuation HFA aerosol inhaler 2 inh INHALATION Q6HP PRN (Reason: shortness of air) ipratropium-albuterol 0.5 mg-3 mg(2.5 mg base)/3 mL Solution For Nebulization 3 ml inhalation Q6HP PRN (Reason: Dyspnea) 30 Days Qty: 120 0RF glipizide 5 mg tablet 5 mg PO DAILY budesonide-formoterol [Symbicort] 160-4.5 mcg/actuation HFA aerosol inhaler 2 puff INHALATION BID Patient Comments: INHALE 2 PUFFS BY MOUTH TWICE DAILY buprenorphine-naloxone 8-2 mg film 2 film sublingual DAILY Patient Comments: PLACE 2 FILM UNDER TONGUE ONCE A DAY Referrals Follow up/Referrals: Colleen Gillis [Primary Care Provider] - See instructions Activity Restrictions/Add. Instructions Additional Instructions/Restrictions: Call your family doctor to establish care for this visit to the emergency department and schedule follow-up within 48 hours to ensure improvement. If you have any worsening of your condition or any other concerning signs or symptoms, return to the emergency department or your primary care doctor for further evaluation. Take Paxlovid as prescribed every day twice daily, take Decadron (steroid) once daily for 5 days. Clinical Impressions Clinical Impression: Acute exacerbation of chronic obstructive pulmonary disease, Chest pain, COVID-19 Discharge ED Provider: [facility] HPI <Michael Bell DO - Last Filed: 04/10/23 07:00> General Chief complaint: Shortness of Breath/Dyspnea Stated complaint: SOA Time Seen by Provider: 04/10/23 06:23 Mode of Arrival: Wheelchair Source of Information: Patient and Spouse Limitations: No Limitations Description of Symptoms (Recalled from ER Triage Doc. by RN): Pt presents with increased SOA x 2 days with pain radiating into his neck, shoulders and back. Pt uses 2l/nc as needed at home. Pt is 91% on RA and 95% on 2L. Pt has productive cough, tried home nebulizer and inhalers with little to no improvement. History of Present Illness HPI narrative: 63-year-old male with past medical history significant for COPD, DM 2, hep C, HTN, GERD, OA, psoriasis, on Suboxone, presents today for evaluation concerning shortness of breath and upper chest/back discomfort over the past couple of days. Has had a productive cough. Patient uses 2 L of oxygen at home as needed. Has not done any breathing treatments. Denies any fevers, chills, nausea vomiting or abdominal pain, dysuria, hematuria. No further complaints at this time. Related Data Home Medications Medication Instructions Recorded Confirmed albuterol sulfate 90 mcg/actuation 2 inh inhalation Q6HP PRN 06/26/22 04/10/23 aerosol inhaler shortness of air empagliflozin 25 mg tablet 25 mg PO DAILY Diabetes 06/26/22 04/10/23 (Jardiance) lisinopril 20 mg tablet 20 mg PO DAILY Blood pressure 06/26/22 04/10/23 metformin 1,000 mg tablet 1,000 mg PO BID Diabetes 06/26/22 04/10/23 budesonide-formoterol HFA 160 2 puff inhalation BID 04/10/23 04/10/23 mcg-4.5 mcg/actuation aerosol inhaler (Symbicort) buprenorphine 8 mg-naloxone 2 mg 2 film sublingual DAILY 04/10/23 04/10/23 sublingual film glipizide 5 mg tablet 5 mg PO DAILY 04/10/23 04/10/23 Previous Rx's Medication Instructions Recorded ipratropium 0.5 mg-albuterol 3 mg 3 ml inhalation Q6HP PRN Dyspnea 06/27/22 (2.5 mg base)/3 mL nebulization 30 days #120 ea soln dexamethasone 6 mg tablet 6 mg PO DAILY #5 tabs 04/10/23 nirmatrelvir 300 mg (150 mg See Rx Instructions PO .COMPLEX 04/10/23 x2)-ritonavir 100 mg tablet,dose #30 tabs pack (Paxlovid) Allergies Allergy/AdvReac Type Severity Reaction Status Date / Time Penicillins Allergy Intermediate Rash Verified 08/01/22 09:57 [facility] <Michael Bell DO - Last Filed: 04/10/23 07:00> [facility] Disclaimer: The information contained in this section may have been updated after the patient was seen, as this information can be updated by other users. Medical History CAP (community acquired pneumonia) COPD (chronic obstructive pulmonary disease) COPD mixed type DDD (degenerative disc disease) Diabetes mellitus, type 2 Edema Hepatitis C Hepatitis C virus infection cured after antiviral drug therapy History of gastroesophageal reflux (GERD) Hypertension Osteoarthritis Psoriasis Psoriasis Screening for lung cancer Smoking greater than 30 pack years Surgical History H/O arthroscopy of right knee Family History Other Family history of acute congestive heart failure Family history of cancer Family history of diabetes mellitus type II Family history of epilepsy Family history of hypertension Family history of myocardial infarction Social History Smoking Status: Current some day smoker alcohol intake: never current occupational status: retired Travel in the last 8 weeks: None <Michael Bell DO - Last Filed: 04/10/23 07:00> ROS Obtained: Yes All systems reviewed & no additional complaints except as documented Physical Exam <Michael Bell DO - Last Filed: 04/10/23 07:00> General General appearance: alert and in no apparent distress Head Head exam: atraumatic and normocephalic Eye Eye exam: Present normal appearance, PERRL and EOMI ENT ENT exam: Present normal oropharynx and mucous membranes moist Neck Neck exam: Present full ROM; Absent meningismus Respiratory Respiratory exam: Present other (Patient with diffuse rhonchi and mild expiratory wheezing.); Absent respiratory distress, wheezes, stridor or accessory muscle use Cardiovascular Cardiovascular exam: Present normal rhythm Abdominal Exam Abdominal exam: Present soft; Absent distention, tenderness, guarding, rebound or rigidity Neurological Exam Neurological exam: Present alert, oriented X3 and CN II-XII intact; Absent motor sensory deficit Psychiatric Psychiatric exam: Present normal affect and normal mood Skin Skin exam: Present warm and dry Medical Decision Making <Michael Bell, DO - Last Filed: 04/10/23 07:00> Medical Records Medical records reviewed: Yes I reviewed the patient's medical records. Joseph Inquiry Pt receiving controlled substance: No Joseph was queried for this patient: No Vital Signs: 04/10/23 06:09 04/10/23 06:43 04/10/23 06:43 Temperature 98.3 F Temperature Source Oral Pulse Rate 79 Pulse Rate [Left] 86 Respiratory Rate 22 Blood Pressure Blood Pressure [Right Arm] 140/65 Blood Pressure Mean [Right Arm] 90 Blood Pressure Source [Right Arm] Automatic Cuff Blood Pressure Position [Right Arm] Sitting 02 Sat by Pulse Oximetry 91 L 94 L Oxygen Delivery Method Room Air Nasal Cannula Oxygen Flow Rate (LPM) 2.5 04/10/23 06:43 04/10/23 06:16 04/10/23 06:31 Temperature Temperature Source Pulse Rate 77 83 77 Pulse Rate [Left] Respiratory Rate 19 Blood Pressure 140/65 123/66 Blood Pressure [Right Arm] Blood Pressure Mean [Right Arm] Blood Pressure Source [Right Arm] Blood Pressure Position [Right Arm] 02 Sat by Pulse Oximetry 94 L 96 Oxygen Delivery Method Oxygen Flow Rate (LPM) Lab Data Lab Results 04/10/23 06:23: WBC 6.9, RBC 5.72, Hgb 17.5, Hct 53.2 H, MCV 93.1, MCH 30.6, MCHC 32.9, RDW 14.7, Plt Count 112 L, MPV 8.3, Neut % (Auto) 53.8, Lymph % (Auto) 34.0, [place] % (Auto) 9.1, Eos % (Auto) 2.6, Baso % (Auto) 0.6, Neut # (Auto) 3.7, Lymph # (Auto) 2.3, [place] # (Auto) 0.6, Eos # (Auto) 0.2, Baso # (Auto) 0.0, Sodium 136, Potassium 4.4, Chloride 98, Carbon Dioxide 33 H, Anion Gap 9.4, BUN 20, Creatinine 0.90, Estimated Creat Clear 121, Estimated GFR 85, Est GFR ( Amer) 103, Glucose 138 H, Lactate 1.3, Calcium 8.6, Magnesium 2.0, Total Bilirubin 0.6, AST 35, ALT 31, Alkaline Phosphatase 90, Troponin I < 0.01, NT-Pro-B Natriuret Pep 121, Total Protein 7.9, Albumin 4.6, Globulin 3.3 H, Albumin/Globulin Ratio 1.4 04/10/23 06:26: VBG pH 7.29 L, VBG pCO2 60.4 H, VBG pO2 23.0 L, VBG HCO3 28.6, VBG Total CO2 30.4 H, VBG O2 Saturation 41.7 L, VBG Base Excess 2.1 04/10/23 06:32: SARS-CoV-2 (PCR) Detected A, Influenza A Untype (PCR) Not detected, Influenza Type B (PCR) Not detected 04/10/23 06:23 04/10/23 06:23 Orders (Tests/Meds): ED MEDICATIONS Discontinued Medications Generic Name Dose Route Start Last Admin Trade Name Freq PRN Reason Stop Dose Admin Albuterol/Ipratropium 9 ml 04/10/23 06:31 04/10/23 06:45 Ipratropium/Albuterol 3 Ml Neb IH 04/10/23 06:32 9 ml ONCE ONE Administration Magnesium Sulfate 2 gm in 50 mls @ 50 mls/hr 04/10/23 06:44 04/10/23 06:51 Magnesium Sulfate 2gm/50ml Premix IV 04/10/23 07:43 50 mls/hr ONCE ONE Administration Methylprednisolone Sodium Succinate 125 mg 04/10/23 06:44 04/10/23 06:51 Methylprednisolone Sod Succ 125mg Vial IV 04/10/23 06:45 125 mg ONCE ONE Administration ORDERS Category Date Time Status XR chest portable Stat Exams 04/10/23 06:26 Taken Brain Natriuretic Peptide Stat Lab 04/10/23 06:23 Completed Complete Blood Count Auto Diff Stat Lab 04/10/23 06:23 Completed Comprehensive Metabolic Panel Stat Lab 04/10/23 06:23 Completed Lactic Acid Stat Lab 04/10/23 06:23 Completed Magnesium Stat Lab 04/10/23 06:23 Completed Rapid PCR Covid and Flu A/B Stat Lab 04/10/23 06:32 Completed Trop I [Troponin I] Stat Lab 04/10/23 06:23 Completed Troponin I Q3H Lab 04/10/23 09:30 Ordered Troponin I Q3H Lab 04/10/23 12:30 Ordered Blood Culture Stat Micro 04/10/23 06:58 Received Venous Blood Gas Stat RT 04/10/23 06:26 Completed ECG initial Besson Stat Y 04/10/23 06:25 Completed HEART Score History (anamnesis): Slightly suspicious ECG: Non-specific disturbance Age: 45-65 years Risk factors: 3 or more risk factors Medical Decision Narrative: 63-year-old male with past medical history significant for COPD, DM 2, hep C, HTN, GERD, OA, psoriasis, on Suboxone, presents today for evaluation concerning shortness of breath and upper chest/back discomfort over the past couple of days. Has had a productive cough. On assessment, the patient was hemodynamically stable and in no acute distress. Afebrile. Physical exam was remarkable for diffuse rhonchi and mild expiratory wheezing on chest auscultation. No peripheral edema noted on exam. Abdomen soft nondistended nontender to palpation. Oropharynx with mild erythema. No exudates noted. Other physical exam findings unremarkable differential diagnoses include but limited to ACS, COPD exacerbation, COVID, influenza, other viral URI, pneumonia, pleural effusion, heart failure, among others. EKG was personally interpreted by me and was remarkable for sinus rhythm with frequent PVCs. Rate of 80 bpm. QRS 96. AL interval 189. QTc of 404. No ST elevations are noted. I did order for DuoNebs and also gave patient Solu-Medrol and magnesium to treat his COPD exacerbation. His current lab workup was remarkable for acidosis on VBG with a pH of 7.29. pCO2 of 60.4. Chest x-ray was personally interpreted by me and there were no focal consolidations noted to suggest a pneumonia. No pleural effusions. Other labs are pending at this time. [facility] provider Dr[facility] Ren pending labs and reassessment. <Galo Ren MD - Last Filed: 04/10/23 08:02> Vital Signs: 04/10/23 06:09 04/10/23 06:43 04/10/23 06:43 Temperature 98.3 F Temperature Source Oral Pulse Rate 79 Pulse Rate [Left] 86 Respiratory Rate 22 Blood Pressure Blood Pressure [Right Arm] 140/65 Blood Pressure Mean [Right Arm] 90 Blood Pressure Source [Right Arm] Automatic Cuff Blood Pressure Position [Right Arm] Sitting 02 Sat by Pulse Oximetry 91 L 94 L Oxygen Delivery Method Room Air Nasal Cannula Oxygen Flow Rate (LPM) 2.5 04/10/23 06:43 04/10/23 06:16 04/10/23 06:31 Temperature Temperature Source Pulse Rate 77 83 77 Pulse Rate [Left] Respiratory Rate 19 Blood Pressure 140/65 123/66 Blood Pressure [Right Arm] Blood Pressure Mean [Right Arm] Blood Pressure Source [Right Arm] Blood Pressure Position [Right Arm] 02 Sat by Pulse Oximetry 94 L 96 Oxygen Delivery Method Oxygen Flow Rate (LPM) Lab Data Lab Results 04/10/23 06:23: WBC 6.9, RBC 5.72, Hgb 17.5, Hct 53.2 H, MCV 93.1, MCH 30.6, MCHC 32.9, RDW 14.7, Plt Count 112 L, MPV 8.3, Neut % (Auto) 53.8, Lymph % (Auto) 34.0, [place] % (Auto) 9.1, Eos % (Auto) 2.6, Baso % (Auto) 0.6, Neut # (Auto) 3.7, Lymph # (Auto) 2.3, [place] # (Auto) 0.6, Eos # (Auto) 0.2, Baso # (Auto) 0.0, Sodium 136, Potassium 4.4, Chloride 98, Carbon Dioxide 33 H, Anion Gap 9.4, BUN 20, Creatinine 0.90, Estimated Creat Clear 121, Estimated GFR 85, Est GFR ( Amer) 103, Glucose 138 H, Lactate 1.3, Calcium 8.6, Magnesium 2.0, Total Bilirubin 0.6, AST 35, ALT 31, Alkaline Phosphatase 90, Troponin I < 0.01, NT-Pro-B Natriuret Pep 121, Total Protein 7.9, Albumin 4.6, Globulin 3.3 H, Albumin/Globulin Ratio 1.4 04/10/23 06:26: VBG pH 7.29 L, VBG pCO2 60.4 H, VBG pO2 23.0 L, VBG HCO3 28.6, VBG Total CO2 30.4 H, VBG O2 Saturation 41.7 L, VBG Base Excess 2.1 04/10/23 06:32: SARS-CoV-2 (PCR) Detected A, Influenza A Untype (PCR) Not detected, Influenza Type B (PCR) Not detected Orders (Tests/Meds): ED MEDICATIONS Discontinued Medications Generic Name Dose Route Start Last Admin Trade Name Jennifer PRN Reason Stop Dose Admin Albuterol/Ipratropium 9 ml 04/10/23 06:31 04/10/23 06:45 Ipratropium/Albuterol 3 Ml Neb IH 04/10/23 06:32 9 ml ONCE ONE Administration Magnesium Sulfate 2 gm in 50 mls @ 50 mls/hr 04/10/23 06:44 04/10/23 06:51 Magnesium Sulfate 2gm/50ml Premix IV 04/10/23 07:43 50 mls/hr ONCE ONE Administration Methylprednisolone Sodium Succinate 125 mg 04/10/23 06:44 04/10/23 06:51 Methylprednisolone Sod Succ 125mg Vial IV 04/10/23 06:45 125 mg ONCE ONE Administration ORDERS Category Date Time Status XR chest portable Stat Exams 04/10/23 06:26 Taken Brain Natriuretic Peptide Stat Lab 04/10/23 06:23 Completed Complete Blood Count Auto Diff Stat Lab 04/10/23 06:23 Completed Comprehensive Metabolic Panel Stat Lab 04/10/23 06:23 Completed Lactic Acid Stat Lab 04/10/23 06:23 Completed Magnesium Stat Lab 04/10/23 06:23 Completed Rapid PCR Covid and Flu A/B Stat Lab 04/10/23 06:32 Completed Trop I [Troponin I] Stat Lab 04/10/23 06:23 Completed Troponin I Q3H Lab 04/10/23 09:30 Ordered Troponin I Q3H Lab 04/10/23 12:30 Ordered Blood Culture Stat Micro 04/10/23 06:58 Received Venous Blood Gas Stat RT 04/10/23 06:26 Completed ECG initial [place] Stat Y 04/10/23 06:25 Completed Medical Decision Narrative: 63-year-old male with past medical history significant for COPD, DM 2, hep C, HTN, GERD, OA, psoriasis, on Suboxone, presents today for evaluation concerning shortness of breath and upper chest/back discomfort over the past couple of days. Has had a productive cough. On assessment, the patient was hemodynamically stable and in no acute distress. Afebrile. Physical exam was remarkable for diffuse rhonchi and mild expiratory wheezing on chest auscultation. No peripheral edema noted on exam. Abdomen soft nondistended nontender to palpation. Oropharynx with mild erythema. No exudates noted. Other physical exam findings unremarkable differential diagnoses include but limited to ACS, COPD exacerbation, COVID, influenza, other viral URI, pneumonia, pleural effusion, heart failure, among others. EKG was personally interpreted by me and was remarkable for sinus rhythm with frequent PVCs. Rate of 80 bpm. QRS 96. AL interval 189. QTc of 404. No ST elevations are noted. I did order for DuoNebs and also gave patient Solu-Medrol and magnesium to treat his COPD exacerbation. His current lab workup was remarkable for acidosis on VBG with a pH of 7.29. pCO2 of 60.4. Chest x-ray was personally interpreted by me and there were no focal consolidations noted to suggest a pneumonia. No pleural effusions. Other labs are pending at this time. Care signed out to oncoming provider Dr. Ren pending labs and reassessment. Gela: I assume primary responsibility for this patient after signout from previous physician. On my evaluation, patient resting comfortably in bed, stating he is breathing much easier. Patient is on 2 L nasal cannula, states he is on 2.5 L at home saturating appropriately at 91%. Patient nontachycardic 80 bpm. Normotensive. Lungs clear to auscultation other than scant, bilateral lower lobe wheezes on end expiration. Patient nontachypneic. Workup interpreted independently and significant for normal white blood cell count. VBG only mildly acidotic at 7.29 with CO2 elevated at 60, however there appears to be some level of chronic retention. Patient was last right around 62 just a few months prior. Chemistry nonactionable, troponin negative, BNP negative. COVID swab positive. Conversation had with patient regarding home-going versus staying, opted for home-going. Conversation was had about Paxlovid and Decadron, agreeable to these outpatient. Because patient at baseline without signs or symptoms of clinical decompensation, deemed appropriate for discharge. Results were relayed to patient who voiced understanding and were agreeable to outpatient management and follow up. At the time of discharge the patient was hemodynamically stable, tolerating PO, and mobilizing appropriately. Critical Care <Michael Bell, DO - Last Filed: 04/10/23 07:00> Critical Care Time Critical Care Time: No
--- NOTE | 2023-04-10 06:33 | PC.NURSE ---
RAD in room at this time.
[2023-04-10 06:36] LABS: Influenza A, PCR Not Detected (NotDetected); Influenza B, PCR Not Detected (NotDetected)
[2023-04-10 06:37] LABS: Basophils % 0.6 % (0.1-2.0); Eosinophils # 0.2 K/mm3 (0.0-0.4); Eosinophils % 2.6 % (0.1-12.0); Hematocrit 53.2 % (42.0-52.0); Hemoglobin 17.5 g/dL (14.1-18.0); Lymphocytes # 2.3 K/mm3 (0.7-4.5); Mean Corpuscular HGB Conc 32.9 g/dL (31.8-35.4); Mean Corpuscular Hemoglobin 30.6 pg (27.0-31.2); Mean Corpuscular Volume 93.1 fl (80-94); Mean Platelet Volume 8.3 fl (7.4-10.4); Monocytes # 0.6 K/mm3 (0.1-1.0); Monocytes % 9.1 % (1.7-9.3); Neutrophils # 3.7 K/mm3 (1.8-7.8); Neutrophils % 53.8 % (37.0-80.0); Platelet Count 112 K/mm3 (142-424); Red Blood Count 5.72 M/mm3 (4.60-6.20); Red Cell Distribution Width 14.7 % (11.5-17.5); White Blood Count 6.9 K/mm3 (4.8-10.8)
[2023-04-10 06:43] LABS: Alanine Aminotransferase 31 U/L (12-78); Albumin Level 4.6 g/dl (3.5-5.0); Albumin/Globulin Ratio 1.4 (1.1-1.8); Alkaline Phosphatase 90 U/L (38-126); Anion Gap 9.4 mEq/L (5-15); Aspartate Amino Transferase 35 U/L (17-59); Bilirubin,Total 0.6 mg/dl (0.2-1.3); Blood Urea Nitrogen 20 mg/dl (9-20); Calcium 8.6 mg/dl (8.4-10.2); Carbon Dioxide 33 mmol/L (22.0-30.0); Chloride 98 mmol/L (98-107); Creatinine Clearance Estimated 121 mL/min (50-200); Estimated Glomerular Filt Rate 85 ml/min (>60); GFR (African American) 103 ML/MIN (>60); Globulin 3.3 g/dL (1.3-3.2); Glucose 138 mg/dl (74-100); Potassium 4.4 mmoL/L (3.5-5.1); Sodium 136 mmol/L (136-145); Total Protein,Serum 7.9 g/dl (6.3-8.2)
[2023-04-10] MEDS: IPRATROPIUM/ALBUTEROL 3 ML NEB 9 ML IH (06:45)
[2023-04-10 06:46] LABS: Lactic Acid 1.3 mmol/L (0.7-2.1)
--- NOTE | 2023-04-10 06:47 | PC.NURSE ---
in room talking with patient at this time.
[2023-04-10 06:51] LABS: VBG Base Excess 2.1 mmol/L (-2.4-2.3); VBG HCO3 28.6 mmol/L (23-30); VBG Oxygen Saturation 41.7 % (50-70); VBG PCO2 60.4 mmol/L (35-51); VBG PH 7.29 mmol/L (7.31-7.41); VBG Total CO2 30.4 mmol/L (23-27)
[2023-04-10] MEDS: MAGNESIUM SULFATE IN WATER 2 GM/50 ML PIGGYBACK IV (06:51)
[2023-04-10] MEDS: METHYLPREDNISOLONE SOD SUCC 125MG VIAL 125 MG IV (06:51)
[2023-04-10 07:30] LABS: NT Pro Brain Natriuretic Pep. 121 pg/mL (0-125)
[2023-04-10 07:42] LABS: Coronavirus 19, PCR Detected (NotDetected)
[2023-04-10 07:44] LABS: Troponin I < 0.01 ng/ml (0.00-0.034)
== END 2023-04-10 08:07 | disposition home or self-care (01) ==
PROVIDERS: Emergency Medicine; Emergency Provider Emergency Medicine; PCP Family Medicine Sports Medicine
DX: U07.1 COVID-19 (principal); J44.1 Chronic obstructive pulmonary disease with (acute) exacerbation; R07.9 Chest pain, unspecified; E11.9 Type 2 diabetes mellitus without complications; I10 Essential (primary) hypertension; F17.200 Nicotine dependence, unspecified, uncomplicated; I49.3 Ventricular premature depolarization
CPT/HCPCS: 71045; 80053; 82803; 83605; 83735; 83880; 84484; 85025; 87040; 87636; 93005; 96365; 96375; 99285; J3475

== ENCOUNTER 2023-09-05 04:29 | Observation (INO) | payer BC, MEDICARE, SELFPAY ==
[2023-09-05] VITALS (13 sets, daily range): BP systolic 97–141; BP diastolic 57–69; PULSE 70–102; RESP 17–28; TEMP 36.6–38.1; O2SAT 90–96; BMI 29.9
--- NOTE | 2023-09-05 04:42 | ECG_ITS ---
APPROVED REPORT Exam: Resting ECG HR:104 bpm ECG Measurements Heart Rate 104 AXES WV 180 P 68 QRSd 102 QRS -4 QT 373 T 84 QTc 433 Conclusion SINUS TACHYCARDIA WITH FREQUENT VENTRICULAR PREMATURE COMPLEXES INDETERMINATE AXIS NONSPECIFIC ST & T-WAVE ABNORMALITY ABNORMAL RHYTHM ECG Electronically signed by : GLO PORTILLO, 09/07/2023 00:07:48
--- NOTE | 2023-09-05 04:46 | XR_ITS ---
PROCEDURE INFORMATION: Exam: XR Chest Exam date and time: 09/05/2023 4:45 AM Age: 63 years old Clinical indication: Shortness of breath; Additional info: Fever, SOA TECHNIQUE: Imaging protocol: Radiologic exam of the chest. Views: 2 views. COMPARISON: CR XR CHEST PORTABLE 04/10/2023 6:30 AM FINDINGS: Lungs: Unremarkable. No consolidation. Pleural spaces: Unremarkable. No pleural effusion. No pneumothorax. Heart/Mediastinum: Unremarkable. No cardiomegaly. Bones/joints: Unremarkable. IMPRESSION: No acute findings.
--- NOTE | 2023-09-05 04:49 | ED_ITS ---
Discharge Plan Disposition Patient Disposition: Admitted Prescriptions Prescriptions: No Action budesonide-formoterol [Symbicort] 160-4.5 mcg/actuation HFA aerosol inhaler 2 puff inhalation BID 90 Days Qty: 10.2 3RF lisinopril 20 mg tablet 20 mg PO DAILY Patient Comments: TAKE 1 TABLET BY MOUTH EVERY DAY metformin 1,000 mg tablet 1,000 mg PO BID Patient Comments: TAKE 1 TABLET BY MOUTH TWICE A DAY WITH MEALS Jardiance 25 mg tablet 25 mg PO DAILY Patient Comments: TAKE 1 TABLET BY MOUTH EVERY DAY albuterol sulfate 90 mcg/actuation HFA aerosol inhaler 2 inh INHALATION Q6HP PRN (Reason: shortness of air) ipratropium-albuterol 0.5 mg-3 mg(2.5 mg base)/3 mL Solution For Nebulization 3 ml inhalation Q6HP PRN (Reason: Dyspnea) 30 Days Qty: 120 0RF glipizide 5 mg tablet 5 mg PO DAILY budesonide-formoterol [Symbicort] 160-4.5 mcg/actuation HFA aerosol inhaler 2 puff INHALATION BID Patient Comments: INHALE 2 PUFFS BY MOUTH TWICE DAILY buprenorphine-naloxone 8-2 mg film 2 film sublingual DAILY Patient Comments: PLACE 2 FILM UNDER TONGUE ONCE A DAY Referrals Follow up/Referrals: Giovanna Kong MD [Primary Care Provider] - See instructions Clinical Impressions Clinical Impression: CAP (community acquired pneumonia), LIS (acute kidney injury), Respiratory failure with hypoxia and hypercapnia, Sepsis Discharge ED Provider: Major Torre General Adult HPI General Chief complaint: Shortness of Breath/Dyspnea Stated complaint: soa,runny nose,chills,coughing up mucus Time Seen by Provider: 09/05/23 04:30 History of Present Illness HPI narrative: 63-year-old male with history of COPD, pneumonia, [id number] diabetes, chronic respiratory failure on 2 L nasal cannula at home at night presents with multiple complaints including increased sputum production, shortness of breath, fever and chills at home. He reports symptoms been ongoing for the last 2 to 3 days, has been waking him up at night. He reports that he feels generally bad. He reports that this feels like when he has had pneumonia in the past. Related Data Home Medications Medication Instructions Recorded Confirmed albuterol sulfate 90 mcg/actuation 2 inh inhalation Q6HP PRN 06/26/22 05/15/23 aerosol inhaler shortness of air empagliflozin 25 mg tablet 25 mg PO DAILY Diabetes 06/26/22 05/15/23 (Jardiance) lisinopril 20 mg tablet 20 mg PO DAILY Blood pressure 06/26/22 05/15/23 metformin 1,000 mg tablet 1,000 mg PO BID Diabetes 06/26/22 05/15/23 budesonide-formoterol HFA 160 2 puff inhalation BID 04/10/23 05/15/23 mcg-4.5 mcg/actuation aerosol inhaler (Symbicort) buprenorphine 8 mg-naloxone 2 mg 2 film sublingual DAILY 04/10/23 05/15/23 sublingual film glipizide 5 mg tablet 5 mg PO DAILY 04/10/23 05/15/23 Previous Rx's Medication Instructions Recorded ipratropium 0.5 mg-albuterol 3 mg 3 ml inhalation Q6HP PRN Dyspnea 06/27/22 (2.5 mg base)/3 mL nebulization 30 days #120 ea soln budesonide-formoterol HFA 160 2 puff inhalation BID 90 days 06/17/23 mcg-4.5 mcg/actuation aerosol #10.2 grams inhaler (Symbicort) Allergies Allergy/AdvReac Type Severity Reaction Status Date / Time Penicillins Allergy Intermediate Rash Verified 05/15/23 11:43 [facility] Disclaimer: The information contained in this section may have been updated after the patient was seen, as this information can be updated by other users. Medical History CAP (community acquired pneumonia) COPD (chronic obstructive pulmonary disease) COPD mixed type DDD (degenerative disc disease) Diabetes mellitus, type 2 Edema Hepatitis C Hepatitis C virus infection cured after antiviral drug therapy History of gastroesophageal reflux (GERD) Hypertension Osteoarthritis Psoriasis Psoriasis Screening for lung cancer Smoking greater than 30 pack years Surgical History H/O arthroscopy of right knee Family History Other Family history of acute congestive heart failure Family history of cancer Family history of diabetes mellitus type II Family history of epilepsy Family history of hypertension Family history of myocardial infarction Social History (Updated 05/15/23 @ 11:44 by Sarah Gusman) Smoking Status: Light tobacco smoker alcohol intake: never current occupational status: retired Travel in the last 8 weeks: None ROS Obtained: Yes All systems reviewed & no additional complaints except as documented Physical Exam General General appearance: alert Comment: Uncomfortable appearing Head Head exam: atraumatic and normocephalic Eye Eye exam: Present normal appearance, PERRL and EOMI ENT ENT exam: Present normal oropharynx and normal external ear exam Neck Neck exam: Present normal inspection and full ROM Chest Chest inspection: Present normal inspection and symmetric chest wall rise; Absent tenderness Respiratory Respiratory exam: Present other (Crackles in left posterior lung [place]); Absent respiratory distress or wheezes Cardiovascular Cardiovascular exam: Present normal rhythm and tachycardia Abdominal Exam Abdominal exam: Present soft; Absent distention, tenderness or guarding Extremities Exam Extremities exam: Present normal inspection; Absent edema or joint swelling Back Exam Back exam: Present normal inspection; Absent tenderness Neurological Exam Neurological exam: Present alert and oriented X3; Absent motor sensory deficit Psychiatric Psychiatric exam: Present normal affect and normal mood Skin Skin exam: Present warm, dry and normal color Lymphatic Lymphatic Findings: no adenopathy Medical Decision Making Medical Records Medical records reviewed: Yes I reviewed the patient's medical records. Joseph Inquiry Pt receiving controlled substance: No Joseph was queried for this patient: No Vital Signs: 09/05/23 04:50 09/05/23 05:29 Temperature 100.6 F H Temperature Source Oral Pulse Rate 89 Pulse Rate [Right Radial] 102 H Respiratory Rate 28 H 19 Blood Pressure 121/57 L Blood Pressure [Right Arm] 126/67 Blood Pressure Mean [Right Arm] 86 Blood Pressure Source [Right Arm] Automatic Cuff Blood Pressure Position [Right Arm] Sitting 02 Sat by Pulse Oximetry 95 94 L Oxygen Delivery Method Nasal Cannula Nasal Cannula Oxygen Flow Rate (LPM) 3 3 Lab Data Lab results reviewed: Yes I reviewed the patient's lab results. Lab Results 09/05/23 04:47: VBG pH 7.28 L, VBG pCO2 57.3 H, VBG pO2 24.0 L, VBG HCO3 26.4, V BG Total CO2 28.1 H, VBG O2 Saturation 47.2 L, VBG Base Excess -0.3, VBG Lactic Acid 2.2 H 09/05/23 04:50: WBC 13.7 H, RBC 5.18, Hgb 16.3, Hct 49.2, MCV 94.9 H, MCH 31.4 H , MCHC 33.1, RDW 14.8, Plt Count 174, MPV 8.3, Neut % (Auto) 72.0, Lymph % (Auto) 19.9, [place] % (Auto) 6.7, Eos % (Auto) 0.8, Baso % (Auto) 0.6, Neut # (Auto) 9.9 H, Lymph # (Auto) 2.7, [place] # (Auto) 0.9, Eos # (Auto) 0.1, Baso # (Auto) 0.1, PT 10.7, INR 0.99, APTT 49.1 H, Sodium 138, Potassium 4.0, Chloride 97 L, Carbon Dioxide 31 H, Anion Gap 14.0, BUN 39 H, Creatinine 1.50 H, Estimated Creat Clear 78, Estimated GFR 47 L, Est GFR ( Amer) 57 L, G lucose 124 H, Lactate 1.8, Calcium 9.5, Total Bilirubin 1.1, AST 25, ALT 25, Alkaline Phosphatase 80, Total Protein 8.1, Albumin 4.6, Globulin 3.5 H, Albumin/Globulin Ratio 1.3 09/05/23 04:52: SARS-CoV-2 (PCR) Not detected, Influenza A Untype (PCR) Not detected, Influenza Type B (PCR) Not detected 09/05/23 04:50 09/05/23 04:50 Orders (Tests/Meds): ED MEDICATIONS Generic Name Dose Route Start Last Admin Trade Name Freq PRN Reason Stop Dose Admin Sodium Chloride 1,000 mls @ 999 mls/hr 09/05/23 05:15 09/05/23 05:11 Sod Chlor 0.9% 1000ml Bag IV 09/05/23 06:15 999 mls/hr .Q1H1M ARIELA Administration Discontinued Medications Generic Name Dose Route Start Last Admin Trade Name Freq PRN Reason Stop Dose Admin Acetaminophen 1,000 mg 09/05/23 05:03 09/05/23 05:10 Acetaminophen 500mg Tab PO 09/05/23 05:04 1,000 mg ONCE ONE Administration Albuterol/Ipratropium 3 ml 09/05/23 04:46 Ipratropium/Albuterol 3 Ml Neb IH 09/05/23 04:47 ONCE ONE Ceftriaxone Sodium 1 gm/ 50 mls @ 100 mls/hr 09/05/23 05:02 09/05/23 05:10 Sodium Chloride IV 09/05/23 05:31 100 mls/hr ONCE ONE Administration Azithromycin 500 mg/ Sodium 250 mls @ 250 mls/hr 09/05/23 05:03 09/05/23 05:10 Chloride IV 09/05/23 05:04 250 mls/hr ONCE ONE Administration Ketorolac Tromethamine 15 mg 09/05/23 05:03 09/05/23 05:11 Ketorolac 30mg/Ml Vial IV 09/05/23 05:04 15 mg ONCE ONE Administration ORDERS Category Date Time Status CXR 2 view (NOT portable) [XR chest 2V] Stat Exams 09/05/23 04:46 Completed Activated Partial Thrombo Time Stat Lab 09/05/23 04:50 Completed CBC w/Auto Diff [Complete Blood Count Auto Diff] Stat Lab 09/05/23 04:50 Completed CMP [Comprehensive Metabolic Panel] Stat Lab 09/05/23 04:50 Completed Lactic Acid Stat Lab 09/05/23 04:50 Completed PT INR [Prothrombin Time INR] Stat Lab 09/05/23 04:50 Completed Rapid PCR Covid and Flu A/B Stat Lab 09/05/23 04:52 Completed Blood Culture Stat Micro 09/05/23 04:50 Received VBG [Venous Blood Gas] Stat RT 09/05/23 04:47 Completed Tissue Perfus/Sepsis Re-Eval Sepsis Re-Evaluation Performed: Yes Date Performed: 09/05/23 Time Performed: 05:34 Medical Decision Narrative: 63-year-old male with history of COPD on chronic nasal cannula presents with shortness of breath, increased sputum production, fever, malaise. History was obtained interactive discussion with patient, family, chart review. On arrival, patient is febrile to 100.6, mildly tachycardic, normotensive, satting appropriately on 3 L nasal cannula (on 2 intermittently at home), moving all extremities spontaneously. Full physical exam performed and significant for asymmetric left-sided crackles. no generalized wheezing or prolonged expiratory phase. Differential includes but is not limited to pneumonia, COPD exacerbation, URI, COVID flu. Patient was given Tylenol, Toradol, 1 L IV fluid bolus, DuoNeb's x 1 for symptomatic management and correction of underlying abnormalities. Workup initiated including CBC CMP VBG blood cultures COVID flu 2 view chest x-ray. Patient was only given 1 L IV fluid bolus because he is neither hypovolemic nor hypotensive. I do not feel a full sepsis bolus is indicated at this time. Laboratory workup independently interpreted by me and significant for leukocytosis with white count 13.7, LIS with creatinine 1.5, up from baseline of 0.9. Patient also has elevated BUN at 39. VBG shows respiratory acidosis as well as hypoxemia Imaging independently interpreted by me and significant for mildly increased perihilar infiltrate from prior, though no obvious lobar pneumonia. Read as normal by radiology.. See radiology read for full review of final results. Given patient history, exam and workup, patient's presentation most likely represents sepsis and acute on chronic hypoxic and hypercarbic respiratory failure secondary to community-acquired pneumonia with associated LIS. Patient was initiated on ceftriaxone and azithromycin for empiric treatment. Interactive discussion was had with the hospitalist on-call for admission. Procedures Risk/Benefits of Procedure(s) Were Explained: Yes Critical Care Critical Care Time Critical Care Time: No
--- NOTE | 2023-09-05 04:54 | PC.NURSE ---
MD Torre notified of sepsis risk at this time
[2023-09-05 04:57] LABS: Basophils # 0.1 K/mm3 (0-0.2); Basophils % 0.6 % (0.1-2.0); Eosinophils # 0.1 K/mm3 (0.0-0.4); Eosinophils % 0.8 % (0.1-12.0); Hematocrit 49.2 % (42.0-52.0); Hemoglobin 16.3 g/dL (14.1-18.0); Lymphocytes # 2.7 K/mm3 (0.7-4.5); Lymphocytes % 19.9 % (10-50); Mean Corpuscular HGB Conc 33.1 g/dL (31.8-35.4); Mean Corpuscular Hemoglobin 31.4 pg (27.0-31.2); Mean Corpuscular Volume 94.9 fl (80-94); Mean Platelet Volume 8.3 fl (7.4-10.4); Monocytes # 0.9 K/mm3 (0.1-1.0); Monocytes % 6.7 % (1.7-9.3); Neutrophils # 9.9 K/mm3 (1.8-7.8); Platelet Count 174 K/mm3 (142-424); Red Blood Count 5.18 M/mm3 (4.60-6.20); Red Cell Distribution Width 14.8 % (11.5-17.5); White Blood Count 13.7 K/mm3 (4.8-10.8)
[2023-09-05 04:57] LABS: Coronavirus 19, PCR Not Detected (NotDetected); Influenza A, PCR Not Detected (NotDetected); Influenza B, PCR Not Detected (NotDetected)
[2023-09-05 05:02] LABS: VBG Base Excess -0.3 mmol/L (-2.4-2.3); VBG HCO3 26.4 mmol/L (23-30); VBG Oxygen Saturation 47.2 % (50-70); VBG PCO2 57.3 mmol/L (35-51); VBG PH 7.28 mmol/L (7.31-7.41); VBG Total CO2 28.1 mmol/L (23-27)
[2023-09-05 05:04] LABS: Lactate Venous 2.2 mmol/L (0.4-2.0)
--- NOTE | 2023-09-05 05:04 | PC.NURSE ---
per MD Torre give pt 1L IVF
[2023-09-05 05:05] LABS: Alanine Aminotransferase 25 U/L (12-78); Albumin Level 4.6 g/dl (3.5-5.0); Albumin/Globulin Ratio 1.3 (1.1-1.8); Alkaline Phosphatase 80 U/L (38-126); Aspartate Amino Transferase 25 U/L (17-59); Bilirubin,Total 1.1 mg/dl (0.2-1.3); Blood Urea Nitrogen 39 mg/dl (9-20); Calcium 9.5 mg/dl (8.4-10.2); Carbon Dioxide 31 mmol/L (22.0-30.0); Chloride 97 mmol/L (98-107); Creatinine Clearance Estimated 78 mL/min (50-200); Estimated Glomerular Filt Rate 47 ml/min (>60); GFR (African American) 57 ML/MIN (>60); Globulin 3.5 g/dL (1.3-3.2); Glucose 124 mg/dl (74-100); Sodium 138 mmol/L (136-145); Total Protein,Serum 8.1 g/dl (6.3-8.2)
[2023-09-05] MEDS: AZITHROMYCIN 500 MG in 0.9 % SODIUM CHLORIDE 250 ML 250 MG IV (05:10)
[2023-09-05] MEDS: CEFTRIAXONE 1 GM 1 GM in 0.9 % SODIUM CHLORIDE 50 ML IV ×2 (05:10→17:13)
[2023-09-05] MEDS: ACETAMINOPHEN 500MG TAB 1000 MG PO (05:10)
[2023-09-05] MEDS: 0.9 % SODIUM CHLORIDE 1000ML 1,000 ML 999 ML IV (05:11)
[2023-09-05] MEDS: KETOROLAC 30MG/ML VIAL 15 MG IV (05:11)
[2023-09-05 05:12] LABS: Activated Partial Thrombo Time 49.1 seconds (22.8-30.6); INR 0.99 (0.9-1.1); Lactic Acid 1.8 mmol/L (0.7-2.1); Prothrombin Time 10.7 seconds (10.1-12.5)
[2023-09-05] MEDS: IPRATROPIUM/ALBUTEROL 3 ML NEB IH ×4 (05:20→23:22)
--- NOTE | 2023-09-05 05:30 | PC.NURSE ---
contacted [facility] for bed assignment.dx: pneumonia, marek,hospitalist
--- NOTE | 2023-09-05 05:38 | PC.NURSE ---
report called to Ileana Mclain RN at this time
--- NOTE | 2023-09-05 05:45 | PC.NURSE ---
1016 RECEIVED PHONE REPORT FROM MELISSA RN/ED NURSE. ESTRELLA IS A 63 YO MALE. DIAGNOSIS CAP/LIS. MAY TRANSFER VIA W/C.
--- NOTE | 2023-09-05 05:49 | P.HP_ITS ---
History of Present Illness *Admission Date: 09/05/23 [facility] Disclaimer: The information contained in this section may have been updated after the patient was seen, as this information can be updated by other users. Medical History CAP (community acquired pneumonia) COPD (chronic obstructive pulmonary disease) COPD mixed type DDD (degenerative disc disease) Diabetes mellitus, type 2 Edema Hepatitis C Hepatitis C virus infection cured after antiviral drug therapy History of gastroesophageal reflux (GERD) Hypertension Osteoarthritis Psoriasis Psoriasis Screening for lung cancer Smoking greater than 30 pack years Surgical History H/O arthroscopy of right knee Family History Other Family history of acute congestive heart failure Family history of cancer Family history of diabetes mellitus type II Family history of epilepsy Family history of hypertension Family history of myocardial infarction Social History (Updated 05/15/23 @ 11:44 by Sarah Gusman) Smoking Status: Light tobacco smoker alcohol intake: never current occupational status: retired Travel in the last 8 weeks: None Meds Home Medications and Allergies Home Medications Medication Instructions Recorded Confirmed Type albuterol sulfate 90 mcg/actuation 2 inh inhalation Q6HP PRN 06/26/22 05/15/23 History aerosol inhaler shortness of air empagliflozin 25 mg tablet 25 mg PO DAILY Diabetes 06/26/22 05/15/23 History (Jardiance) lisinopril 20 mg tablet 20 mg PO DAILY Blood pressure 06/26/22 05/15/23 History metformin 1,000 mg tablet 1,000 mg PO BID Diabetes 06/26/22 05/15/23 History ipratropium 0.5 mg-albuterol 3 mg 3 ml inhalation Q6HP PRN Dyspnea 06/27/22 05/15/23 Rx (2.5 mg base)/3 mL nebulization 30 days #120 ea soln budesonide-formoterol HFA 160 2 puff inhalation BID 04/10/23 05/15/23 History mcg-4.5 mcg/actuation aerosol inhaler (Symbicort) buprenorphine 8 mg-naloxone 2 mg 2 film sublingual DAILY 04/10/23 05/15/23 History sublingual film glipizide 5 mg tablet 5 mg PO DAILY 04/10/23 05/15/23 History budesonide-formoterol HFA 160 2 puff inhalation BID 90 days 06/17/23 Rx mcg-4.5 mcg/actuation aerosol #10.2 grams inhaler (Symbicort) New Prescriptions to Start Prescriptions: Allergies Allergy/AdvReac Type Severity Reaction Status Date / Time Penicillins Allergy Intermediate Rash Verified 05/15/23 11:43 Exam Data for Last 24 hours Vital signs and Labs for Last 24 Hours: Temp Pulse Resp BP Pulse Ox O2 Del Method O2 Flow Rate 100.6 F H 89 19 121/57 L 94 L Nasal Cannula 3 09/05/23 04:50 09/05/23 05:29 09/05/23 05:29 09/05/23 05:29 09/05/23 05:29 09/05/23 05:29 09/05/23 05:29 Laboratory Results - last 24 hr 09/05/23 04:47: VBG pH 7.28 L, VBG pCO2 57.3 H, VBG pO2 24.0 L, VBG HCO3 26.4, VBG Total CO2 28.1 H, VBG O2 Saturation 47.2 L, VBG Base Excess -0.3, VBG Lactic Acid 2.2 H 09/05/23 04:50: WBC 13.7 H, RBC 5.18, Hgb 16.3, Hct 49.2, MCV 94.9 H, MCH 31.4 H , MCHC 33.1, RDW 14.8, Plt Count 174, MPV 8.3, Neut % (Auto) 72.0, Lymph % (Auto) 19.9, [place] % (Auto) 6.7, Eos % (Auto) 0.8, Baso % (Auto) 0.6, Neut # (Auto) 9.9 H, Lymph # (Auto) 2.7, [place] # (Auto) 0.9, Eos # (Auto) 0.1, Baso # (Auto) 0.1, PT 10.7, INR 0.99, APTT 49.1 H, Sodium 138, Potassium 4.0, Chloride 97 L, Carbon Dioxide 31 H, Anion Gap 14.0, BUN 39 H, Creatinine 1.50 H, Estimated Creat Clear 78, Estimated GFR 47 L, Est GFR ( Amer) 57 L, Glucose 124 H, Lactate 1.8, Calcium 9.5, Total Bilirubin 1.1, AST 25, ALT 25, Alkaline Phosphatase 80, Total Protein 8.1, Albumin 4.6, Globulin 3.5 H, Albumin/Globulin Ratio 1.3 09/05/23 04:52: SARS-CoV-2 (PCR) Not detected, Influenza A Untype (PCR) Not detected, Influenza Type B (PCR) Not detected I & O for Last 24 hours: Intake & Output 09/02/23 09/03/23 09/04/23 09/05/23 23:59 23:59 23:59 23:59 Weight 108.862 kg
--- NOTE | 2023-09-05 06:06 | PC.NURSE ---
patient arrived to floor via wheelchair @06:03
--- NOTE | 2023-09-05 06:29 | PC.NURSE ---
arrived to the floor at 0605 via w/c. at bedside.
[2023-09-05] MEDS: LEVOFLOXACIN/D5W 750 MG/150 ML 750 MG/150 ML PIGGYBACK 100 MG IV (06:36)
[2023-09-05] MEDS: 0.9 % SODIUM CHLORIDE 1000ML 1,000 ML 100 ML IV ×2 (06:36→16:56)
[2023-09-05 06:38] LABS: POC Glucose,Bedside 193 (70-110)
[2023-09-05] MEDS: DOCUSATE SODIUM 100 MG CAPSULE PO (07:39)
[2023-09-05] MEDS: PANTOPRAZOLE 40MG TABLET 40 MG PO (07:39)
[2023-09-05] MEDS: ENOXAPARIN 40MG/0.4ML SYRINGE 40 MG SQ (07:39)
--- NOTE | 2023-09-05 07:46 | HMH.PHAINT1 ---
Pharmacy Intervention Comments: MEDICATION RECONCILIATION COMPLETED ON PATIENT USING EXTERNAL FILL HISTORY FROM PHARMACY. -DEVEN OLIVA, SILVIAD
[2023-09-05 09:05] LABS: Reflex Lactic Add Lactic Reflex
[2023-09-05] MEDS: BUPRENORPHINE/NALOXONE 8MG/2MG ODT 2 EACH SL (09:32)
[2023-09-05] MEDS: EMPAGLIFLOZIN 10MG TABLET 20 MG PO (10:30)
[2023-09-05 10:32] LABS: POC Glucose,Bedside 184 (70-110)
--- NOTE | 2023-09-05 15:04 | PC.NURSE ---
Aox 4, 93% on 2L nc, 20g L AC with NS@ 100 ML/HR, LOVENOX vte, upadlib.
[2023-09-05 16:40] LABS: POC Glucose,Bedside 154 (70-110)
--- NOTE | 2023-09-05 16:55 | EXP.HP ---
History of Present Illness *Admission Date: 09/05/23 *Reason for visit:: SOB *History of present illness: [Patient is a 63-year-old male with past medical history of COPD on 2 L nasal cannula who presents to the hospital due to shortness of breath fever. According the patient he has been feeling sick for the past 3 to 4 days, he mentions he has quit smoking about 30 days ago. He denied chest pain nausea vomiting diarrhea constipation dysuria. He endorses having fevers at home, he was observed to have fever 100.6 in the emergency department. [facility] Disclaimer: The information contained in this section may have been updated after the patient was seen, as this information can be updated by other users. Medical History CAP (community acquired pneumonia) COPD (chronic obstructive pulmonary disease) COPD mixed type DDD (degenerative disc disease) Diabetes mellitus, type 2 Edema Hepatitis C Hepatitis C virus infection cured after antiviral drug therapy History of gastroesophageal reflux (GERD) Hypertension Osteoarthritis Psoriasis Psoriasis Screening for lung cancer Smoking greater than 30 pack years Surgical History H/O arthroscopy of right knee Family History Other Family history of acute congestive heart failure Family history of cancer Family history of diabetes mellitus type II Family history of epilepsy Family history of hypertension Family history of myocardial infarction Social History (Updated 09/05/23 @ 06:19 by Christina Mclain RN) Smoking Status: Light tobacco smoker alcohol intake: never current occupational status: retired Travel in the last 8 weeks: None Review of Systems Review of Systems Review of systems:: pertinent systems reviewed and negative unless documented below Meds Home Medications and Allergies Home Medications Medication Instructions Recorded Confirmed Type albuterol sulfate 90 mcg/actuation 2 inh inhalation Q4HP PRN 06/26/22 09/05/23 History aerosol inhaler shortness of air empagliflozin 25 mg tablet 25 mg PO DAILY 06/26/22 09/05/23 History (Jardiance) lisinopril 20 mg tablet 20 mg PO DAILY 06/26/22 09/05/23 History metformin 1,000 mg tablet 1,000 mg PO BID Diabetes 06/26/22 09/05/23 History budesonide-formoterol HFA 160 2 puff inhalation BID 04/10/23 09/05/23 History mcg-4.5 mcg/actuation aerosol inhaler (Symbicort) buprenorphine 8 mg-naloxone 2 mg 2 film sublingual DAILY 04/10/23 09/05/23 History sublingual film triamterene 37.5 1 tab PO DAILY 09/05/23 09/05/23 History mg-hydrochlorothiazide 25 mg tablet New Prescriptions to Start Prescriptions: Allergies Allergy/AdvReac Type Severity Reaction Status Date / Time Penicillins Allergy Intermediate Rash Verified 05/15/23 11:43 Exam Data for Last 24 hours Vital signs and Labs for Last 24 Hours: Temp Pulse Resp BP Pulse Ox O2 Del Method O2 Flow Rate 98.1 F 70 18 97/57 L 90 L Nasal Cannula 2 09/05/23 07:55 09/05/23 11:00 09/05/23 07:55 09/05/23 07:55 09/05/23 11:00 09/05/23 16:38 09/05/23 16:38 Laboratory Results - last 24 hr 09/05/23 04:47: VBG pH 7.28 L, VBG pCO2 57.3 H, VBG pO2 24.0 L, VBG HCO3 26.4, VBG Total CO2 28.1 H, VBG O2 Saturation 47.2 L, VBG Base Excess -0.3, VBG Lactic Acid 2.2 H 09/05/23 04:50: WBC 13.7 H, RBC 5.18, Hgb 16.3, Hct 49.2, MCV 94.9 H, MCH 31.4 H, MCHC 33.1, RDW 14.8, Plt Count 174, MPV 8.3, Neut % (Auto) 72.0, Lymph % (Auto) 19.9, [place] % (Auto) 6.7, Eos % (Auto) 0.8, Baso % (Auto) 0.6, Neut # (Auto) 9.9 H, Lymph # (Auto) 2.7, [place] # (Auto) 0.9, Eos # (Auto) 0.1, Baso # (Auto) 0.1, PT 10.7, INR 0.99, APTT 49.1 H, Sodium 138, Potassium 4.0, Chloride 97 L, Carbon Dioxide 31 H, Anion Gap 14.0, BUN 39 H, Creatinine 1.50 H, Estimated Creat Clear 78, Estimated GFR 47 L, Est GFR ( Amer) 57 L, Glucose 124 H, Lactate 1.8, Calcium 9.5, Total Bilirubin 1.1, AST 25, ALT 25, Alkaline Phosphatase 80, Total Protein 8.1, Albumin 4.6, Globulin 3.5 H, Albumin/Globulin Ratio 1.3 09/05/23 04:52: SARS-CoV-2 (PCR) Not detected, Influenza A Untype (PCR) Not detected, Influenza Type B (PCR) Not detected 09/05/23 06:31: POC Glucose 193 H 09/05/23 10:25: POC Glucose 184 H 09/05/23 16:12: POC Glucose 154 H I & O for Last 24 hours: Intake & Output 09/02/23 09/03/23 09/04/23 09/05/23 23:59 23:59 23:59 23:59 Intake Total 1150 / 1150 Output Total Balance 1149 / 1149 Weight 109.633 kg Constitutional Constitutional: no acute distress *Routine HEENT Exam Head: Present normocephalic Eye: Present EOMI and PERRL ENT: Present mucous membranes moist *Routine Neck Exam Neck: Present supple; Absent lymphadenopathy *Routine Respiratory Exam Respiratory: Present CTA bilaterally *Routine Cardiovascular Exam Cardiovascular: Present RRR *Routine Abdominal Exam Abdominal: Present soft and normoactive bowel sounds; Absent tenderness *Routine Rectal Exam Rectal:: deferred *Routine Genitalia Exam Genitalia:: deferred *Routine Extremities Exam Extremities: Absent cyanosis, clubbing or edema *Routine Skin Exam Skin: Present warm; Absent rash *Routine Neurological Exam Neurological: Present alert and oriented X3 Assessment and Plan *Assessment and plan (1) Sepsis: Status: Acute Qualifiers: Sepsis acute organ dysfunction status: with acute organ dysfunction Sepsis type: sepsis due to unspecified organism Severe sepsis shock status: without septic shock Category: Medical Code(s): A41.9 - Sepsis, unspecified organism (2) LIS (acute kidney injury): Status: Acute Category: Medical Code(s): N17.9 - Acute kidney failure, unspecified (3) Respiratory failure with hypoxia and hypercapnia: Status: Acute Qualifiers: Chronicity: acute on chronic Qualified Code(s): J96.21 - Acute and chronic respiratory failure with hypoxia; J96.22 - Acute and chronic respiratory failure with hypercapnia Category: Medical Code(s): J96.91 - Respiratory failure, unspecified with hypoxia; J96.92 - Respiratory failure, unspecified with hypercapnia (4) Acute exacerbation of chronic obstructive pulmonary disease: Status: Acute Category: Medical Code(s): J44.1 - Chronic obstructive pulmonary disease with (acute) exacerbation (5) Hypertension: Status: Chronic Category: Medical Code(s): I10 - Essential (primary) hypertension Plan Patient is a 63-year-old male with past medical history of COPD on 2 L nasal cannula who presents to the hospital due to shortness of breath fever. According the patient he has been feeling sick for the past 3 to 4 days, he mentions he has quit smoking about 30 days ago. He denied chest pain nausea vomiting diarrhea constipation dysuria. He endorses having fevers at home, he was observed to have fever 100.6 in the emergency department. Assessment and plan Shortness of breath likely secondary to COPD exacerbation Start DuoNebs Prednisone Doxycycline Wean oxygen supplementation as tolerated Leukocytosis, fever suspect likely due to pulmonary source Will continue IV antibiotics with Rocephin, doxycycline Check blood cultures, sputum cultures Rapid flu antigen, rapid COVID antigen checked-negative Acute kidney injury Hold off of nephrotoxic medications Continue to monitor Baseline creatinine 0.9 Diabetes mellitus-order insulin sliding scale Hypertension -Monitor DVT prophylaxis-heparin
[2023-09-05] MEDS: DOXYCYCLINE HYCLATE 100 MG in 0.9 % SODIUM CHLORIDE 250 ML 166.667000000000002 MG IV (18:14)
[2023-09-05 20:27] LABS: POC Glucose,Bedside 157 (70-110)
[2023-09-05] MEDS: humaLOG 100 UNITS/ML 10ML VIAL (SSI) SQ (20:34)
[2023-09-06] VITALS: BP 135/63; PULSE 85; RESP 18; TEMP 36.6; O2SAT 96
[2023-09-06] MEDS: 0.9 % SODIUM CHLORIDE 1000ML 1,000 ML 100 ML IV (02:46)
[2023-09-06 04:00] VITALS: BP 113/56; PULSE 85; RESP 16; TEMP 36.7; O2SAT 93
[2023-09-06] MEDS: DOXYCYCLINE HYCLATE 100 MG in 0.9 % SODIUM CHLORIDE 250 ML 166.667000000000002 MG IV (05:01)
--- NOTE | 2023-09-06 05:13 | PC.NURSE ---
PATIENT HAS RESTED WELL. A/O X 4. VITAL SIGNS STABLE/ABEBRILE. 02 AT 2LNC. 02 SATS 93-96%. HAS WHEEZES AND CRACKLES BILAT LUNG [place]CH[place]ALD. PRODUCTIVE COUGH, SM AMTS YELLOW, THIN. CULTURES (CRE, BLOOD , SPUTUM, AND COVID) RESULTS PENDING. AMBULATORY TO BR. NO C/O PAIN. REPORTS SOA WITH EXERTION BUT FEELS MUCH IMPROVED SINCE HIS ADMISSION. RECEIVED 5 UNITS S/S HUMALOG AT 2100 FOR FSBS 157. THIS AM FSBS 124, NO COVERAGE REQUIRED.
[2023-09-06 05:17] LABS: POC Glucose,Bedside 124 (70-110)
[2023-09-06 06:30] VITALS: O2SAT 91
[2023-09-06] MEDS: IPRATROPIUM/ALBUTEROL 3 ML NEB IH (06:30)
[2023-09-06] MEDS: PANTOPRAZOLE 40MG TABLET 40 MG PO (07:40)
[2023-09-06] MEDS: EMPAGLIFLOZIN 10MG TABLET 20 MG PO (07:40)
[2023-09-06] MEDS: BUPRENORPHINE/NALOXONE 8MG/2MG ODT 2 EACH SL (07:40)
[2023-09-06] MEDS: DOCUSATE SODIUM 100 MG CAPSULE PO (07:40)
[2023-09-06] MEDS: ENOXAPARIN 40MG/0.4ML SYRINGE 40 MG SQ (07:40)
[2023-09-06 08:00] VITALS: BP 123/89; PULSE 90; RESP 18; TEMP 36.9; O2SAT 92
[2023-09-06 09:42] LABS: Basophils % 0.2 % (0.1-2.0); Eosinophils # 0.1 K/mm3 (0.0-0.4); Eosinophils % 1.4 % (0.1-12.0); Lymphocytes # 1.2 K/mm3 (0.7-4.5); Mean Corpuscular HGB Conc 31.9 g/dL (31.8-35.4); Mean Corpuscular Hemoglobin 31.1 pg (27.0-31.2); Mean Corpuscular Volume 97.6 fl (80-94); Mean Platelet Volume 8.2 fl (7.4-10.4); Monocytes # 0.6 K/mm3 (0.1-1.0); Monocytes % 7.4 % (1.7-9.3); Neutrophils # 6.2 K/mm3 (1.8-7.8); Neutrophils % 75.9 % (37.0-80.0); Platelet Count 140 K/mm3 (142-424); Red Blood Count 4.51 M/mm3 (4.60-6.20); Red Cell Distribution Width 14.5 % (11.5-17.5); White Blood Count 8.1 K/mm3 (4.8-10.8)
[2023-09-06 09:46] LABS: Chloride 105 mmol/L (98-107); Potassium 4.1 mmoL/L (3.5-5.1); Sodium 136 mmol/L (136-145)
[2023-09-06 09:49] LABS: Blood Urea Nitrogen 20 mg/dl (9-20); Creatinine Clearance Estimated 117 mL/min (50-200); Estimated Glomerular Filt Rate 85 ml/min (>60); GFR (African American) 103 ML/MIN (>60)
[2023-09-06 09:50] LABS: Anion Gap 10.1 mEq/L (5-15); Calcium 8.8 mg/dl (8.4-10.2); Carbon Dioxide 25 mmol/L (22.0-30.0); Glucose 194 mg/dl (74-100)
--- NOTE | 2023-09-06 10:24 | PC.NURSE ---
RESP CARE NOTE: Pt wears 3 lpm nc oxygen at home full-time. SPO2 on 3 lpm nc at 93%. Pt placed on room air and SPO2 decreased to 85%. Oxygen re-applied at home use level of 3 lpm and SPO2 increased to 94%.
[2023-09-06 10:30] LABS: POC Glucose,Bedside 151 (70-110)
[2023-09-06] MEDS: humaLOG 100 UNITS/ML 10ML VIAL (SSI) SQ (10:41)
== END 2023-09-06 12:07 | disposition home or self-care (01) ==
LOC: ER 05:30 → 2ND 05:55
PROVIDERS: Admitting Provider Internal Medicine; Emergency Provider Emergency Medicine; PCP Family Medicine; Visit Provider Internal Medicine
DX: J18.9 Pneumonia, unspecified organism (principal); N17.9 Acute kidney failure, unspecified; J96.92 Respiratory failure, unspecified with hypercapnia; J96.91 Respiratory failure, unspecified with hypoxia; J44.1 Chronic obstructive pulmonary disease with (acute) exacerbation; A41.9 Sepsis, unspecified organism; J44.0 Chronic obstructive pulmonary disease with (acute) lower respiratory infection; Z99.81 Dependence on supplemental oxygen; J96.10 Chronic respiratory failure, unspecified whether with hypoxia or hypercapnia; Z79.84 Long term (current) use of oral hypoglycemic drugs; I10 Essential (primary) hypertension; R06.02 Shortness of breath; M19.90 Unspecified osteoarthritis, unspecified site; Z87.891 Personal history of nicotine dependence
CPT/HCPCS: 36415; 71046; 80048; 80053; 82803; 82962; 83605; 85025; 85610; 85730; 87040; 87070; 87081; 87205; 87252; 87636; 93005; 94640; 94761; G0378; J0456; J0574; J0696; J1956

== ENCOUNTER 2024-08-21 12:41 | Outpatient (CLI) | payer BC, SELFPAY ==
--- NOTE | 2024-08-21 | CA_ITS ---
APPROVED REPORT EXAM: Comprehensive 2D, Doppler, and color-flow Echocardiogram Hospice Admitting Clerk: MICKI Marcelino, RVS Ht: 6 ft 4 in Wt: 245lbs BSA: 2.41 BP: 116/60 mmHg Indications: Edema, COPD, history of ND. 2D Dimensions IVSd 1.02 cm M: 0.6-1.2 LVEF (Visual) 68.10 % PWd 1.11 cm M: 0.6 - 1.2 LA Volume 59.40 mL LVDd 4.62 cm M: 4.2 - 5.9 LA Volume Index 24.55 mL/m2 (M/F) 16-34 LVDs 2.87 cm M: 2.5 - 4.0 EF AP4 72.60 % Left Atrium 4.60 cm M: 3.0 - 4.0 GL Strain -30.0 % M-Mode Dimensions LA Diam 4.07 cm (1.9-4.0) TAPSE 2.31 (<1.7) LV Diastology E Decel Time 227 (160-240 msec) E/A Ratio 1.04 MED A' 10.40 cm/s Aortic Valve MELISSA Index 1.21 cm2/m2 AoV Peak Brian. 147.0 (50-130 cm/s) AO Peak GR. 8.60 mmHg AO Mean GR. 4.30 (<5 mmHg) AO VTI 27.6 (18-25 cm) MELISSA (VTI) 2.98 (2.5-4.5 cm2) Mitral Valve MV A Velocity 72.0 (40-130 cm/s) E/A Ratio 1.04 Tricuspid Valve TR P. Velocity 181.00 cm/s RAP Estimate 10.00 mmHg RVSP 23.10 mmHg Left Ventricle The left ventricle is normal size. The left ventricular systolic function is normal. The left ventricular ejection fraction is within the normal range. There is increased LV wall thickness. There is normal LV segmental wall motion. The left ventricular diastolic function is normal. LVEF is 65%. Right Ventricle Right ventricle is mildly dilated. The right ventricular systolic function is normal. Atria The left atrium size is normal. The right atrium size is normal. Color Doppler demonstrates possible evidence of interatrial shunt. Aortic Valve The aortic valve is normal in structure. There is no aortic valvular stenosis. Trace aortic regurgitation. Mitral Valve The mitral valve is normal in structure. No evidence of mitral valve stenosis. Trace mitral regurgitation. Tricuspid Valve Tricuspid valve is grossly normal in structure and function. Trace tricuspid regurgitation. There is insufficient TR jet to estimate RVSP. Pulmonic Valve The pulmonary valve is normal in structure. Trace pulmonic regurgitation. Great Vessels The aortic root is normal in size. IVC is normal in size and collapses >50% with inspiration. Pericardium There is no pericardial effusion. Other Information Study Quality: Fair Conclusion Normal biventricular systolic function. Mild RV dilation. No significant valvular stenosis or regurgitation. Color Doppler demonstrates possible evidence of interatrial shunt. Further evaluation with limited TTE + agitated saline administration (bubble study) is suggested to evaluate for the presence of interatrial shunt. Electronically signed by : Eugenia Sesay MD 08/30/2024 23:18:30
--- OUTSIDE RECORDS SUMMARY | 2024-08-21 12:43 | XMS_ITS | Data Portability ---
Author Organization [facility] HOWIE Ramos [place] CL[facility] Address [address] [place] [address] Care Team Providers Care Bladder Changer Name Role Phone RUBÉN FLANAGAN Neurologist [phone] ALBA PAL Primary Care Provider ALBA PAL Referring Provider Assessment No assessment recorded. Plan of Treatment Reminders Order Date Submit Date Provider Last Modified By Organization Details Last Modified Time Details Appointments None recorded. Lab None recorded. Referral neurologist referral 2019 020 [email or web address] Rubén Flanagan MD, [facility] [place], [address], 0 08:48:17 Procedures None recorded. Surgeries None recorded. Imaging XR, foot, 3 or more view 2019 020 [email or web address] [facility], [address] , [place], [address], 0 10:12:38 Medication Orders None recorded. Patient TargetsNo targets recorded. Patient Instructions Encounter Date Encounter Id Patient Instructions Last Modified By Organization Details Last Modified Time 09/09/2019 [id number] foot arthritis: exercises orooney Not available 09/09/2019 11:24:28 toenail fungus: care instructions orooney Not available 09/09/2019 14:13:21 hammer toe: care instructions orooney Not available 09/09/2019 14:13:21 Plan: Initial office visit. Conditions discussed in detail treatment recommendations. Diabetic pedal education evaluation. Discussed topical antifungal therapy. Nail debridement. Kerasal ointment recommended. X-rays ordered and reviewed. Discussed splinting left second MTPJ follow-up 3 weeks zoila Not available 09/09/2019 12:39:40 Reason for Referral Neurologist Referral for Per ipheral neuropathy due to type 2 diabetes mellitus Referring Physician: Angie Blandon, Podiatry, Encounter Date: 09/09/2019 Results Created Date Observation Date Name Description Value Unit Range Abnormal Flag Note LastModifiedBy Organization Detail LastModifiedTime 09/09/19 20 09/09/2019 XR, foot, 3 or more view [address] [place] [address] Patiashleigh coker Name: JOHN coker : 1959 Patiashleigh coker 4 Orderi ng Provid er: ANGIE BLANDON EXAM DATE: 2019 EXAM: XR RT FOOT COMPLE TE HISTOR Y: Right foot pain. COMPAR VICKY: None. FINDIN GS: There is a small bunion at the first metata rsal head with mild osteoa rthrit ic change s. There are mild to modera te degene rative change s in the interp halang eal joint of the great toe. There is an access ory navicu lar bone. There is mild enthes opathi c change about the calcan eus. The bones are normal in alignm ent. There is no fractu re. IMPRES KWAME: 1. There are mild degene rative change s in the right foot. Interp reted By: Horace mon MD Electr onical ly Signed By: Horace mon MD on 09/09/19 12:35 PM [facility] [address] , [place], [address], 09/09/2019 13:30:51 Result Notes None recorded. Problems Name Problem SNOMED Code Status Onset Date Resolution Date Notes Provider Name and Address Organization Details Recorded Time Diabetes mellitus 70879090 Active 020 FRANKLIN Hurd - [facility] 0 11:04:44 Problem Notes None recorded. Procedures Surgical History Date Name Laterality Status Provider Name and Address Organization Details Recorded Time 0 Injection Joint/Bursa, Small - Podiatry completed ANGIE BLANDON DPM [address] [place], [address], [facility] 09/09/2019 12:38:50 Imaging Results Imaging Date Name Status LastModified by Organiz ation Details LastModified Time 09/09/2019 XR, foot, 3 or more view completed [facility] [address] , [place], [address], 09/09/2019 13:30:51 Procedure Notes None recorded. Medical Equipment None Reported. Allergies Allergen ID Allergen Name Allergen Category Reaction Reaction Severity Criticality Documentation Date Start Date Code Code System Note Provider Name and Address Organization Details Recorded Time 223744 Product containin g penicilli n (product) medicatio n Not available Not available Not available 09/09/2019 23903 8001 SNOMED Kathrin [facility] 0 11:03:32 Medications Name Sig Start Date Stop Date Status Note LastModified by Organization Details LastModified Time glipizide active Not Available Not Holly ilable Not Available metformin active Not Available Not Holly ilable Not Available Symbicort active Not Available Not Holly ilable Not Available Jardiance active Not Available Not Holly ilable Not Available Vitals None Recorded Social History None recorded. Functional Status None recorded. Mental Status None recorded. Family History Nothing Reported. Medical History No medical history recorded. Past Encounters Encounter ID Performer Location Encounter Start Date Encounter Closed Date Diagnosis/Indication Diagnosis SNOMED-CT Code Diagnosis ICD10 Code Diagnosis Note [id number] ANGIE BLANDON DPM [facility] [address] [place] [place] [place] [address] 09/09/2019 10:53:20 09/09/2019 12:46:23 Peripheral neuropathy due to type 2 diabetes mellitus 6483920251 107 E11.42 Osteoarthr itis of ankle and/or foot 71778194 M19.079 Hammer toe 696674364 M20 .42 With medial deviation Onychomycosis 828923137 B35.1 Paresthesia 81189373 R20 .2 Health Concerns Section Related Observation LastModified by Organization Detai ls LastModified Time None Recorded Concern Status LastModified by Organization Details LastModified Time None Recorded Advance Directives Directive None Recorded Payers Insurance Date Sequence Insurance Name Policy Number Policy Watts Covered Member ID Watts Member ID Guarantor Name 11/19/2023 1 [employer] (PPO) [id number] Marjorie Davila [id number] Walter Davila 11/19/2023 1 [place] ([place]) [id number] 3 Marjorie Davila [id number] Walter Davila Notes Date Note Type Note Provider Name and Address Organization Details Recorded Time 09/09/2019 text/html Location:Right hallux IPJ regionDuration:O carin one monthSeverity:Mo deratemod factors:Has noticed redness and swelling pain with ambulation. Denies trauma. He does extrinsic burning and tingling in the feet at rest. ANGIE BLANDON, LUISA [address] [place], [address], [facility] 09/09/2019 14:13:24
--- OUTSIDE RECORDS SUMMARY | 2024-08-21 12:43 | XMS_ITS | Data Portability ---
Author Organization [facility] ADMIN Address [address] [place] [address] Assessment No assessment recorded. Plan of Treatment Reminders Order Date Submit Date Provider Last Modified By Organization Details Last Modified Time Details Appointments None recorded. Lab None recorded. Referral None recorded. Procedures None recorded. Surgeries None recorded. Imaging None recorded. Medication Orders Medrol (Asmm) 4 mg tablets in a dose pack 2022 023 EUSEBIO Not available 12:30:52 clindamycin HCl 300 mg capsule 2022 023 EUSEBIO Not available 12:30:50 Patient TargetsNo targets recorded. Patient Instructions Encounter Date Encounter Id Patient Instructions Last Modified By Organization Details Last Modified Time 07/23/2022 [id number] tooth decay: car e instructions Not available 07/23/2022 12:30:53 abscessed tooth: care instructions Not available 07/23/2022 12:30:53 tooth and gum pain: care instructions Not available 07/23/2022 12:30:53 broken tooth: care instructions Not available 07/23/2022 12:30:53 Reason for Referral None Reported. Medical Equipment None Reported. Allergies Allergen ID Allergen Name Allergen Category Reaction Reaction Severity Criticality Documentation Date Start Date Code Code System Note Provider Name and Address Organization Details Recorded Time 47124 Product containin g penicilli n (product) medicatio n Not available Not available Not available 07/23/2022 91185 8001 SNOMED Enedina Beth torrez [facility] [place] 12:23:59 Medications Name Sig Start Date Stop Date Status Note LastModified by Organization Details LastModified Time nystatin 100,000 unit/mL oral suspension SWISH AND SWALLOW 5 ML 4 (FOUR) TIMES A DAY. 07/23 completed Not Available Not Available Not Available ipratropium 0.5 mg-albutero l 3 mg (2.5 mg base)/3 mL nebulizatio n soln INHALE 3 MLS BY MOUTH EVERY 6 HOURS NEEDED NEEDED FOR DYSPNEA FOR 30 DAYS 07/23 completed Not Available Not Available Not Available clindamycin HCl 300 mg capsule Take 1 capsule every 6 hours by oral route for 10 days. active Not Available Not Available No t Available cetirizine 10 mg tablet TAKE 1 TABLET BY MOUTH EVERY DAY 07/23 completed Not Available Not Available Not Available azithromyci n 250 mg tablet BY MOUTH DIRECTED TAKE 2 TABLETS TODAY THEN 1 TABLET FOR REMAINING 4 DAYS. 07/23 completed Not Available Not Available Not Available lisinopril 20 mg tablet TAKE 1 TABLET BY MOUTH EVERY DAY active Not Available Not Available No t Available prednisone 20 mg tablet TAKE 2 TABLETS BY MOUTH EVERY DAY 07/23 completed Not Available Not Available Not Available bacitracin 500 unit/gram topical ointment APPLY TO AFFECTED AREA TWICE A DAY AFTER DRESSING CHANGES 07/23 completed Not Available Not Available Not Available doxycycline monohydrate 100 mg tablet TAKE 1 TABLET BY MOUTH TWICE A DAY 07/23 completed Not Available Not Available Not Available doxycycline monohydrate 100 mg capsule TAKE 1 CAPSULE BY MOUTH EVERY 12 HOURS FOR 10 DAYS. 07/23 completed Not Available Not Available Not Available metformin 1,000 mg tablet TAKE 1 TABLET BY MOUTH TWICE A DAY WITH MEALS active Not Available Not Available No t Available ammonium lactate 12 % topical cream APPLY TO AFFECTED AREA TWICE A DAY 07/23 completed Not Available Not Available Not Available levofloxaci n 750 mg tablet TAKE ONE TABLET BY MOUTH ONCE DAILY FOR 8 DAYS 07/23 completed Not Available Not Available Not Available methylpredn isolone 4 mg tablets in a dose pack Take 1 dose pk by oral route for 6 days. active Not Available Not Available No t Available albuterol sulfate HFA 90 mcg/actuati on aerosol inhaler TAKE 2 PUFFS BY MOUTH EVERY 4 HOURS NEEDED FOR WHEEZE 07/23 completed Not Available Not Available Not Available Spiriva with HandiHaler 18 mcg and inhalation capsules active Not Available Not Available Not Available Januvia 100 mg tablet TAKE 1 TABLET BY MOUTH EVERY DAY active Not Available Not Available No t Available budesonide- formoterol HFA 160 mcg-4.5 mcg/actuati on aerosol inhaler INHALE 2 PUFFS TWICE A DAY active Not Available Not Available No t Available buprenorphi ne 8 mg-naloxone 2 mg sublingual film 07/23 completed Not Available Not Available Not Available Jardiance 10 mg tablet TAKE 1 TABLET BY MOUTH EVERY DAY 07/23 completed Not Available Not Available Not Available Jardiance 25 mg tablet TAKE 1 TABLET BY MOUTH EVERY DAY active Not Available Not Available No t Available Vitals Date Recorded Body height Body mass index (BMI) Body weight Body temperature Oxygen saturation Oxygen saturation in Arterial blood by Pulse oximetry Heart rate Systolic blood pressure Diastolic blood pressure Provider Name and Address Organization Details Last Updated DateTime 3 187.96 cm 31.3 kg/m2 182100. 54 g 99.1 [degF] 96 % 96 % 73 /min 152 mm[Hg] 72 mm[Hg] Enedina Busch [facility] 3 12:23:22 Social History None recorded. Functional Status None recorded. Mental Status None recorded. Family History Nothing Reported. Medical History No medical history recorded. Past Encounters Encounter ID Performer Location Encounter Start Date Encounter Closed Date Diagnosis/Indication Diagnosis SNOMED-CT Code Diagnosis ICD10 Code Diagnosis Note [id number] Lulu Cheung, DNP, BIODIESEL TECHNOLOGY MANAGER-C, INDUSTRIAL CHEMISTRY TEACHER [facility] [address] [address] 07/23/2022 12:14:47 07/23/2022 12:36:28 Infection of tooth 598169280 K04.7 Health Concerns Section Related Observation LastModified by Organization Detai ls LastModified Time None Recorded Concern Status LastModified by Organization Details LastModified Time None Recorded Advance Directives Directive None Recorded Payers Insurance Date Sequence Insurance Name Policy Number Policy Watts Covered Member ID Watts Member ID Guarantor Name 10/26/2023 1 [employer] (PPO) Walter Davila [id number] Walter Davila Notes Date Note Type Note Provider Name and Address Organization Details Recorded Time 07/23/2022 text/html Per patient he had a tooth break off the other patient day. says his face is all swollen up and he cant get comfortable. patient cant get into dentist for thirteen days. patient says that it just started swelling up yesterday. Lulu Cheung, EDI, BIODIESEL TECHNOLOGY MANAGER-C, INDUSTRIAL CHEMISTRY TEACHER [address] [facility] [address], [place], [address], [facility] [place] & [place] 07/23/2022 12:31:04
== END 2024-08-21 23:59 | disposition home or self-care (01) ==
LOC: RT 12:42
PROVIDERS: PCP Family Medicine; Visit Provider Nurse Practitioner Family
DX: I51.7 Cardiomegaly (principal); M25.472 Effusion, left ankle; M25.471 Effusion, right ankle; M25.474 Effusion, right foot; M25.475 Effusion, left foot; J44.9 Chronic obstructive pulmonary disease, unspecified; I25.2 Old myocardial infarction
CPT/HCPCS: 93306

== ENCOUNTER 2024-11-16 13:04 | Outpatient (CLI) | payer BC, SELFPAY ==
--- OUTSIDE RECORDS SUMMARY | 2024-09-22 11:30 | XMS_ITS | Encounter Summary ---
Author Organization [facility] Address [address] [place] [id number] Care Team Providers Care Grid Molder Name Role Phone Luann Giovanna Sarah IRENE Primary Care Provider [phone] Reason for Visit * Reason Comments Follow-up Encounter Details Date Type Department Care Team (Late st Contact Info) Description 09/22/2024 11:30 AM EDT Office Visit [facility] [address] [facility] [place] [address] Dana Perla, CIVIL ENGINEER [employer] [address] [facility] [place] [address] Follow-up exam after treatment (Primary Dx); Swelling of lower extremity; Acute gout involving toe of right foot, unspecified cause; Acute pneumonia Social History Tobacco Use Types Packs/Day Years Used Date Smoking Tobacco: Former Cigarettes Q uit: 2020 Passive Smoke Exposure: Past Smokeless Tobacco: Never Alcohol Use Standard Drinks/Week Comments No 0 (1 standard drink = 0.6 oz pur e alcohol) PHQ-2 Answer Date Recorded Retired PHQ-9: Brief Depression Severity Measure Score 0 08/22/2022 PHQ-2 Answer Date Recorded Patient Health Questionnaire-2 Score 0 04/20/2024 Sex and Gender Information Value Date Recorded Sex Assigned at Not on file Legal Sex Male 2:30 PM EST Gender Identity Not on file Sexual Orientation Not on file documented as of this encounter Last Filed Vital Signs Vital Sign Reading Time Taken Comments Blood Pressure 102/58 09/22/2024 11:32 AM EDT Pulse 75 09/22/2024 11:32 AM EDT Temperature 36.6 C (97.8 F) 09/22/2024 11:32 AM EDT Respiratory Rate 16 09/22/2024 11:32 AM EDT Oxygen Saturation 98% 09/22/2024 11:32 AM EDT Inhaled Oxygen Concentration - - Weight 112 kg (247 lb) 09/22/2024 11:32 AM EDT Height 190.5 cm (6' 3 ) 09/22/2024 11:32 AM EDT Body Mass Index 30.87 09/22/2024 11:32 AM EDT documented in this encounter Patient Instructions * Attachments The following attachments cannot be sent through Care Everywhere. * Low-Purine Eating Plan (Hungarian) documented in this encounter Progress Notes * Dana Perla, CIVIL ENGINEER [employer] - 09/22/2024 11:30 AM EDT Date: 09/22/2024 Patient Name: Walter Davila Jr. : 1960 Chief Complaint: Chief Complaint Patient presents with Follow-up History of Present Illness: Walter Davila Jr. is a 64 y.o. male who is here today to follow up for HPI History of Present Illness The patient presents for gout, diabetes, pneumonia, and hyperlipidemia. He reports a significant improvement in his overall health status, with particular emphasis on the condition of his feet. He has been maintaining a bandage on his toe as part of his care regimen. He expresses interest in understanding the dietary modifications necessary to manage his elevated uric a jaden levels. His diet includes a high intake of keller yogurt, and he occasionally consumes alcohol. He experienced a persistent cough yesterday, which he suspects may have been allergy-related. He also reported severe wheezing last night. SOCIAL HISTORY He drinks alcohol sometimes. Review of Systems: Review of Systems Constitutional: Negative for fatigue. Respiratory: Positive for wheezing. Cardiovascular: Positive for leg swelling. I have reviewed the patients family history, social history, past medical history, past surgical history and have updated it as appropriate. Medications: Current Outpatient Medications: Accu-Chek Softclix Lancets lancets, CHECK GLUCOSE DAILY, Disp: , Rfl: albuterol (ACCUNEB) 1.25 MG/3ML nebulizer solution, Take 3 mL by nebulization Every 6 (Six) Hours As Needed for Shortness of Air., Disp: 120 mL, Rfl: 2 albuterol sulfate HFA 108 (90 Base) MCG/ACT inhaler, Inhale 2 puffs Every 4 (Four) Hours As Needed for Wheezing or Shortness of Air., Disp: 8.5 g, Rfl: 5 Blood Glucose Monitoring Suppl (Accu-Chek Guide) w/Device kit, CHECK GLUCOSE DAILY, Disp: , Rfl: budesonide-formoterol (SYMBICORT) 160-4.5 MCG/ACT inhaler, , Disp: , Rfl: buprenorphine-naloxone (SUBOXONE) 8-2 MG film film, PLACE 2 FILM(S) UNDER TONGUE ONCE A DAY DIRECTED, Disp: , Rfl: cetirizine (zyrTEC) 10 MG tablet, Take 1 tablet by mouth Daily. (Patient taking differently: Take 1tablet by mouth Daily As Needed.), Disp: 90 tablet, Rfl: 1 Typkjstemtv-Nrhhgnubq-Xlbbda (Trelegy Ellipta) 100-62.5-25 MCG/ACT inhaler, Inhale 1 puff Daily., Disp: 60 each, Rfl: 5 furosemide (LASIX) 20 MG tablet, Take 2 tablets by mouth Daily., Disp: 60 tablet, Rfl: 0 glipizide (GLUCOTROL) 5 MG tablet, Take 1 tablet by mouth 2 (Two) Times a Day Before Meals., Disp: 60 tablet, Rfl: 5 glucose blood test strip, Check glucose daily, Disp: 25 each, Rfl: 12 glucose monitor monitoring kit, Check glucose daily, Disp: 1 each, Rfl: 0 ipratropium-albuterol (DUO-NEB) 0.5-2.5 mg/3 ml nebulizer, Take 3 mL by nebulization Every 4 (Four)Hours As Needed for Wheezing., Disp: 360 mL, Rfl: 1 Jardiance 25 MG tablet tablet, TAKE 1 TABLET BY MOUTH EVERY DAY, Disp: 90 tablet, Rfl: 3 Lancet Device misc, Check glucose daily, Disp: 25 each, Rfl: 12 lisinopril (PRINIVIL,ZESTRIL) 10 MG tablet, TAKE ONE TABLET BY MOUTH ONCE DAILY, Disp: 90 tablet, Rfl: 1 metFORMIN (GLUCOPHAGE) 1000 MG tablet, TAKE 1 TABLET BY MOUTH TWICE A DAY WITH MEALS, Disp: 60 tablet, Rfl: 5 rosuvastatin (Crestor) 10 MG tablet, Take 1 tablet by mouth Every Night., Disp: 90 tablet, Rfl: 3 tadalafil (Cialis) 10 MG tablet, Take 1 tablet by mouth Daily As Needed for Erectile Dysfunction., Disp: 10 tablet, Rfl: 5 triamterene-hydrochlorothiazide (Maxzide-25) 37.5-25 MG per tablet, Take 1 tablet by mouth Daily., Disp: 90 tablet, Rfl: 1 UREA 20 INTENSIVE HYDRATING 20 % cream, 1 Application Daily., Disp: , Rfl: 5 Allergies: Allergies Allergen Reactions Penicillins Rash PHQ-9 Total Score: Physical Exam: Vital Signs: Vitals: 09/22/24 1132 BP: 102/58 Pulse: 75 Resp: 16 Temp: 97.8 ??F (36.6 ??C) SpO2: 98% Weight: 112 kg (247 lb) Height: 190.5 cm (75 ) Body mass index is 30.87 kg/m??. Physical Exam Vitals and nursing note reviewed. Constitutional: Appearance: Normal appearance. HENT: Head: Normocephalic and atraumatic. Cardiovascular: Rate and Rhythm: Normal rate and regular rhythm. Pulmonary: Effort: Pulmonary effort is normal. Breath sounds: Wheezing present. Skin: General: Skin is warm. Neurological: Mental Status: He is alert and oriented to person, place, and time. Assessment/Plan: Diagnoses and all orders for this visit: 1. Follow-up exam after treatment (Primary) 2. Swelling of lower extremity 3. Acute gout involving toe of right foot, unspecified cause 4. Acute pneumonia Assessment & Plan 1. Gout. - Elevated uric acid levels indicate gout, causing discomfort in the toe. - Improvement in symptoms noted; patient reports toe is still okay but keeping it bandaged. - Discussed dietary modifications to manage elevated uric acid levels; handout to be provided. - Advised to maintain adequate hydration. 2. Diabetes Mellitus. - A1c level is 7.9, showing slight improvement from 5 months ago. - Kidney function slightly decreased, likely due to recent illness. - Encouraged to drink plenty of water. - Continued monitoring of blood glucose levels recommended. 3. Pneumonia. - Elevated white blood cell count, likely due to recent pneumonia. - Patient reports feeling better but experienced some wheezing last night. - Physical exam reveals slight wheezing, but overall improvement. - Advised to monitor symptoms and stay hydrated. 4. Hyperlipidemia. - Cholesterol levels are stable. - Currently taking rosuvastatin (Crestor), which appears to be effective. - No changes in medication regimen required. - Continued monitoring of lipid levels recommended. Patient or patient wireless sales representative verbalized consent for the use of Ambient Listening during the visit with Dana Perla APRN for chart documentation. 09/22/2024 12:26 EDT Follow Up: Return if symptoms worsen or fail to improve. Dana Perla. GINGER [facility] documented in this encounter Plan of Treatment Upcoming Encounters Date Type Department Care Team (Late st Contact Info) Description 02/08/2025 12:15 PM EST Office Visit [facility] [address] [place] [id number] Giovanna Kong DO [address] [place] [address] documented as of this encounter Visit Diagnoses Diagnosis Follow-up exam after treatment- Primary Unspecified follow-up examination Swelling of lower extremity Acute gout involving toe of right foot, unspecified cause Acute pneumonia documented in this encounter Care Teams Grid Molder Relationship Specialty Start Date End Date Giovanna Kong DO [address] [place] [address] PCP - General Family Medicine 07/03/17 documented as of this encounter
--- OUTSIDE RECORDS SUMMARY | 2024-11-09 12:00 | XMS_ITS | Encounter Summary ---
Author Organization [facility] Address [address] [place] [address] Care Team Providers Care Box Toe Cutter Name Role Phone Giovanna Kong DO Primary Care Provider [phone] Reason for Referral * Diagnostic Imaging (Routine) - Authorized Specialty Diagnoses / Procedures Referred By Bessy coker Referred To Contact Diagnoses Abnormal echocardiogram Procedures Adult Transthoracic Echo Complete W/ Cont if Necessary Per Protocol MS ECHO TTHRC R-T 2D W/WOM-MODE COMPL SPEC&COLR D MS ECHO TRANSTHORC R-T 2D W/WO M-MODE REC F-UP/LMTD Giovanna Kong DO [address] [place] [address] Phone: tel: fax: [facility] [address] [place] [address] [facility] [place] [place] [address] Phone: tel: fax: Referral ID Status Reason Start Date Expiration Date V isits Requested Visits Authorized [id number] Authorized 11/09/2024 02/08/2026 1 1 * Consultation (Routine) - Authorized Specialty Diagnoses / Procedures Referred By Contac t Referred To Contact Vascular Surgery Diagnoses Bilateral swelling of feet and ankles Procedures MS OFFICE/OUTPATIENT NEW MODERATE MDM 45 MINUTES Giovanna Kong DO [address] [place] [address] Phone: tel: fax: Richard Fonseca MD [address] [place] [address] Phone: tel: fax: Referral ID Status Reason Start Date Expiration Date Visits Requested Visits Authorized [id number] Authorized Specialty Services Required 11/09/2024 02/08/2026 1 1 Reason for Visit * Reason Comments 3 mo f/u DM Encounter Details Date Type Department Care Team (Latest Contact Info) Description 11/09/2024 12:00 PM EDT Office Visit [facility] [address] [place] [address] Giovanna Kong DO [address] [place] [address] Essential hypertension (Primary Dx); Type 2 diabetes mellitus without complication, without long-term current use of insulin; Mixed hyperlipidemia; Easy bruisability; Bilateral swelling of feet and ankles; Elevated uric acid in blood; Abnormal echocardiogram Social History Tobacco Use Types Packs/Day Years [...] Sign Reading Time Taken Comments Blood Pressure 82/54 11/09/2024 11:22 AM EDT Pulse 74 11/09/2024 11:22 AM EDT Temperature 36.3 C (97.3 F) 11/09/2024 11:22 AM EDT Respiratory Rate 18 11/09/2024 11:22 AM EDT Oxygen Saturation 96% 11/09/2024 11:22 AM EDT Inhaled Oxygen Concentration - - Weight 113 kg (249 lb) 11/09/2024 11:22 AM EDT Height 190.5 cm (6' 3 ) 11/09/2024 11:22 AM EDT Body Mass Index 31.12 11/09/2024 11:22 AM EDT documented in this encounter Patient Instructions * Attachments The following attachments cannot be sent through Care Everywhere. * Low-Purine Eating Plan (Prydeinig) documented in this encounter Progress Notes * LuannRoyalindsey Smith, DO - 11/09/2024 12:00 PM EDT Chief Complaint 3 mo f/u (DM) Subjective Walter Davila Jr. presents to [facility] History of Present Illness The patient presents for a follow-up visit. He reports persistent ankle swelling for the past 2 years, which he believes may be due to medication. He recalls an incident where the swelling was so severe that it impeded his ability to walk. Additionally, his feet swelled significantly 2 days ago, making it difficult for him to move around hishouse. He reports no other joint issues. He has not been using compression socks or wraps and has not sought advice from a vascular specialist. An ultrasound was performed last year to check for blood clots. He is currently on Lasix and Maxzide for fluid management. He has a history of heavy lifting, including working at [employer] where he lifted 174 pounds of beer with one arm. He also has a history of boxing. He first noticed the swelling about 8 years ago andreports no other swelling apart from his ankles. He is aware of the need for exercise but feels limited due to his condition. He has reduced his water intake and has stopped consuming alcohol. He used to drink beer 2 or 3 times a week. He is curious about whether drinking beer could help his condition. He does not elevate his legs. He has been diagnosed with gout in his toe and was prescribed a cream for topical application twicedaily. He has never had gout before. He was advised to get an MRI of his toe but could not afford it. His lung function has improved, and he no longer requires oxygen or frequent use of his inhaler. Heis on Trelegy. He had cancer removed from his arm since his last visit. Social History: Occupations: Heavy lifting at [employer], boxing Diet: Reduced water intake Alcohol: Stopped consuming alcohol, used to drink beer 2 or 3 times a week PAST SURGICAL HISTORY: Cancer removed from right arm The following portions of the patient's history were reviewed and updated as appropriate: allergies, current medications, past family history, past medical history, past social history, past surgicalhistory, and problem list. Objective Physical Exam Vitals and nursing note reviewed. Cardiovascular: Rate and Rhythm: Normal rate and regular rhythm. Heart sounds: Normal heart sounds. Pulmonary: Effort: Pulmonary effort is normal. Breath sounds: Normal breath sounds. Musculoskeletal: General: Swelling (bilateral ankle 1+) present. Neurological: Mental Status: He is alert. Psychiatric: Mood and Affect: Mood normal. Physical Exam Result Review : Results Echocardiogram 08/21/2024 LVEF 65%. Mild RV dilation. Color Doppler demonstrates possible evidence of interatrial shunt. No significant valvular stenosis or regurgitation. Further evaluation with limited TTE plus agitated saline administration (bubble study) suggested to evaluate for the presence of interatrial shunt. Assessment and Plan Diagnoses and all orders for this visit: 1. Essential hypertension (Primary) - Comprehensive Metabolic Panel - Protime-INR - Hemoglobin A1c - CBC (No Diff) - Uric acid 2. Type 2 diabetes mellitus without complication, without long-term current use of insulin - Comprehensive Metabolic Panel - Protime-INR - Hemoglobin A1c - CBC (No Diff) - Uric acid 3. Mixed hyperlipidemia - Comprehensive Metabolic Panel - Protime-INR - Hemoglobin A1c - CBC (No Diff) - Uric acid 4. Easy bruisability - Comprehensive Metabolic Panel - Protime-INR - Hemoglobin A1c - CBC (No Diff) - Uric acid 5. Bilateral swelling of feet and ankles - Ambulatory Referral to Vascular Surgery - Comprehensive Metabolic Panel - Protime-INR - Hemoglobin A1c - CBC (No Diff) - Uric acid 6. Elevated uric acid in blood - Comprehensive Metabolic Panel - Protime-INR - Hemoglobin A1c - CBC (No Diff) - Uric acid 7. Abnormal echocardiogram - Adult Transthoracic Echo Complete W/ Cont if Necessary Per Protocol; Future Assessment & Plan 1. Ankle swelling. - Persistent ankle swelling for nearly two years, with significant impact on mobility. - Physical examination and history suggest venous damage rather than congestive heart failure; heart function appears normal based on echocardiogram August 2024. - Referral to a vascular specialist for further evaluation and treatment planning; - bubble study ordered to investigate potential shunt between heart chambers. - Advised to elevate legs as much as possible; blood work to assess A1c and platelet count. 2. Gout. - Elevated uric acid levels noted during last visit in 09/2024, indicating potential gout flare-up. - Physical examination and history do not indicate other joint involvement. - Uric acid levels will be rechecked today. - Counseling on dietary factors that may influence uric acid levels. 3. Psoriasis. - Currently managed by Dr. Rodriguez; no changes to the treatment plan discussed. - Recent removal of a skin cancer lesion by Dr. Rodriguez; patient reports good outcome. 4. COPD. - Significant improvement in respiratory symptoms; no longer using oxygen or inhaler frequently. - Advised to continue monitoring symptoms and report any changes, such as a productive cough. - Physical examination revealed a slight rattle in the lungs; advised to report if it persists. Blood pressure is low, but he is asymptomatic. Work on oral hydration. Monitor blood pressure, follow-up sooner if remains low. Follow Up Return in about 3 months (around 02/09/2025) for Recheck. Patient or patient customer loyalty representative verbalized consent for the use of Ambient Listening during the visit with Giovanna Kong DO for chart documentation. 11/09/2024 17:52 EDT Patient was given instructions and counseling regarding his condition or for health maintenance advice. Please see specific information pulled into the AVS if appropriate. documented in this encounter Plan of Treatment Upcoming Encounters Date Type Department Care Team (Late st Contact Info) Description 02/08/2025 12:15 PM EST Office Visit [facility] [address] [place] [address] Giovanna Kong DO [address] [place] [address] Scheduled Orders Name Type Priority Associated Diagnoses Orde r Schedule Adult Transthoracic Echo Complete W/ Cont if Necessary Per Protocol Echocardiography Routine Abnormal echocardiogram Expected: 11/14/2024, Expires: 02/09/2026 Scheduled Referrals Name Type Priority Associated Diagnoses Order Schedule Ambulatory Referral to Vascular Surgery Outpatient Referral Routine Bilateral swelling of feet and ankles Ordered: 11/09/2024 documented as of this encounter Procedures Procedure Name Priority Date/Time Associated Diagnosis Comments PROTIME-INR Routine 11/09/2024 12:51 PM EDT Essential hypertension Type 2 diabetes mellitus without complication, without long-term current use of insulin Mixed hyperlipidemia Easy bruisability Bilateral swelling of feet and ankles Elevated uric acid in blood CBC (NO DIFF) Routine 11/09/2024 12:51 PM EDT Essential hypertension Type 2 diabetes mellitus without complication, without long-term current use of insulin Mixed hyperlipidemia Easy bruisability Bilateral swelling of feet and ankles Elevated uric acid in blood URIC ACID Routine 11/09/2024 12:51 PM EDT Essential hypertension Type 2 diabetes mellitus without complication, without long-term current use of insulin Mixed hyperlipidemia Easy bruisability Bilateral swelling of feet and ankles Elevated uric acid in blood HEMOGLOBIN A1C Routine 11/09/2024 12:51 PM EDT Essential hypertension Type 2 diabetes mellitus without complication, without long-term current use of insulin Mixed hyperlipidemia Easy bruisability Bilateral swelling of feet and ankles Elevated uric acid in blood COMPREHENSIVE METABOLIC PANEL Routine 11/09/2024 12:51 PM EDT Essential hypertension Type 2 diabetes mellitus without complication, without long-term current use of insulin Mixed hyperlipidemia Easy bruisability Bilateral swelling of feet and ankles Elevated uric acid in blood documented in this encounter Results * Uric acid (11/09/2024 12:51 PM EDT) Uric Acid 7.4 3.8 - 8.4 mg/dL [facility] Comment:Therapeutic target f or gout patients: <6.0 Blood 11/09/2024 12:5 1 PM EDT 11/09/2024 Narrative [facility]) - 11/10/2024 8:11 AM EDT Performed at: - [facility] [address] [place], [place] [id number] Sole Stitcher Hand: Benson Garsia PhD, Phone: [phone] Patient Fasting: N [facility] Sarah Kong DO LAB BLOOD ORDERABLES Final Result Performing Organization Address City/[facility]/ZIP Co de Phone Number [facility] ([facility]) [address] [place] [address], [facility] [address] [place] [address], * CBC (No Diff) (11/09/2024 12:51 PM EDT) [facility] WBC 7.4 3.4 - 10.8 x10E3/uL [facility] RBC 5.03 4.14 - 5.80 x10E6/uL [facility] Hemoglobin 15.6 13.0 - 17.7 g/dL [facility] Hematocrit 47.9 37.5 - 51.0 % [facility] MCV 95 79 - 97 fL [facility] MCH 31.0 26.6 - 33.0 pg [facility] MCHC 32.6 31.5 - 35.7 g/dL [facility] RDW 13.1 11.6 - 15.4 % [facility] Platelets 178 150 - 450 x10E3/uL [facility] Blood 11/09/2024 12:5 1 PM EDT 11/09/2024 Narrative [facility] ([facility]) - 11/10/2024 8:11 AM EDT Performed at: - [facility] [address] [place], [place] [id number] Sole Stitcher Hand: Benson Garsia PhD, Phone: [phone] Patient Fasting: N Giovanna Kong DO LAB BLOOD ORDERABLES Final Result [facility] ([facility]) [address] [place] [address], [facility] [address] [place] [address], [place] [phone] * (ABNORMAL) Hemoglobin A1c (11/09/2024 12:51 PM EDT) Hemoglobin A1C 9.1(H) 4.8 - 5.6 % [facility] Comment: Prediabetes: 5.7 - 6.4 Diabetes: >6.4 Glycemic control for adults with diabetes: <7.0 Blood 11/09/2024 12:5 1 PM EDT 11/09/2024 Narrative [facility]) - 11/10/2024 8:11 AM EDT Performed at: - [address] [id number] Sole Stitcher Hand: Benson Garsia PhD, Phone: [phone] Patient Fasting: N varinode Giovanna Kong DO LAB BLOOD ORDERABLES Final Result [facility] ([facility]) [address] [place] [address], [place] [phone] [facility] [address] [place] [address], [place] [phone] * Protime-INR (11/09/2024 12:51 PM EDT) Pathologist [facility] [place] INR 0.9 0.9 - 1.2 [facility] Comment: Reference interval is for non-anticoagulated patients. Suggested INR therapeutic range for Vitamin K antagonist therapy: Standard Dose (moderate intensity therapeutic range): 2.0 - 3.0 Higher intensity therapeutic range 2.5 - 3.5 Protime 10.0 9.1 - 12.0 sec [facility] Blood 11/09/2024 12:5 1 PM EDT 11/09/2024 [facility]) - 11/10/2024 8:11 AM EDT Performed at: [address] [id number] Sole Stitcher Hand: Benson Garsia PhD, Phone: [phone] Patient Fasting: N ReksoftGiovannamarino Kong DO LAB BLOOD ORDERABLES Final Result Performing Organization Address City/[facility] Co de Phone Number [facility] ([facility]) [address] [place] [address], [facility] [address] [place] [address], * (ABNORMAL) Comprehensive Metabolic Panel (11/09/2024 12:51 PM EDT) Glucose 205(H) 70 - 99 mg/dL [facility] BUN 32(H) 8 - 27 mg/dL [facility] Creatinine 1.17 0.76 - 1.27 mg/dL [facility] EGFR Result 70 >59 mL/min/1.7 3 [facility] BUN/Creatinine Ratio 27(H) 10 - 24 [facility] Sodium 136 134 - 144 mmol/L [facility] Potassium 5.0 3.5 - 5.2 mmol/L [facility] Chloride 96 96 - 106 mmol/L [facility] Total CO2 24 20 - 29 mmol/L [facility] Calcium 9.8 8.6 - 10.2 mg/dL [facility] Total Protein 7.3 6.0 - 8.5 g/dL [facility] Albumin 4.7 3.9 - 4.9 g/dL [facility] Globulin 2.6 1.5 - 4.5 g/dL [facility] Total Bilirubin 0.4 0.0 - 1.2 mg/dL [facility] Alkaline Phosphatase 85 44 - 121 IU/L [facility] AST (SGOT) 15 0 - 40 IU/L [facility] ALT (SGPT) 17 0 - 44 IU/L [facility] Blood 11/09/2024 12:5 1 PM EDT 11/09/2024 Narrative [facility]) - 11/10/2024 8:11 AM EDT Performed at: 01 - [facility] [id number] [facility], [place], [place] [id number] Sole Stitcher Hand: Benson Garsia PhD, Phone: [phone] Patient Fasting: N Giovanna Kong DO LAB BLOOD ORDERABLES Final Result [facility] ([facility]) [address] [place] [address], [place] [phone] [facility] [address] [place] [address], [place] [phone] documented in this encounter Visit Diagnoses Diagnosis Essential hypertension- Primary Unspecified essential hypertension Type 2 diabetes mellitus without complication, without long-term current use of insulin Mixed hyperlipidemia Easy bruisability Other symptoms involving skin and integumentary tissues Bilateral swelling of feet and ankles Elevated uric acid in blood Abnormal echocardiogram Nonspecific (abnormal) findings on radiological and other examination of other intrathoracic organs documented in this encounter Care Teams Box Toe Cutter Relationship Specialty Start Date End Date Giov[place] [address] PCP - General Family Medicine 07/03/17 documented as of this encounter
--- OUTSIDE RECORDS SUMMARY | 2024-11-16 13:08 | XMS_ITS | Encounter Summary ---
Author Organization [facility] Address [address] [place] [id number] Care Team Providers Care Applied Psychology Teacher Name Role Phone LuannJadon ratliffayla Sarah IRENE Primary Care Provider [phone]- [phone] Reason for Visit * Reason Comments Med Refill Encounter Details Date Type Department Care Team (Late st Contact Info) Description 10/16/2024 Refill [facility] [address] [facility] [place] [address] Dana Perla, PARK LANDSCAPE ARCHITECT [address] [facility] [place] [address] Bilateral swelling of feet and ankles Social History Tobacco Use Types Packs/Day Years [...] on file documented as of this encounter Plan of Treatment Upcoming Encounters Date Type Department Care Team (Late st Contact Info) Description 02/08/2025 12:15 PM EST Office Visit [facility] [address] [facility] [place] [address] Giovanna Kong DO [address] [place] [address] documented as of this encounter Visit Diagnoses Diagnosis Bilateral swelling of feet and ankles documented in this encounter Care Teams Applied Psychology Teacher Relationship Specialty Start Date End Date Giovanna Kong DO [address] [place] [address] PCP - General Family Medicine 07/03/17 documented as of this encounter
--- OUTSIDE RECORDS SUMMARY | 2024-11-16 13:08 | XMS_ITS | Encounter Summary ---
Author Organization [facility] Address [address] [place] [id number] Care Team Providers Care Assembler Body Name Role Phone Giovanna Kong DO Primary Care Provider [phone] Encounter Details Date Type Department Care Team (Latest Contact Info) Description 09/22/2024 Travel Social History Tobacco Use Types Packs/Day Years [...] Description 02/08/2025 12:15 PM EST Office Visit [facility] [address] [place] [address] Giovanna Kong DO [address] [place] [address] documented as of this encounter Visit Diagnoses Not on filedocumented in this encounter Care Teams Assembler Body Relationship Specialty Start Date End Date Giovanna Kong DO [address] [place] [address] PCP - General Family Medicine 07/03/17 documented as of this encounter
--- OUTSIDE RECORDS SUMMARY | 2024-11-16 13:08 | XMS_ITS | Encounter Summary ---
Author Organization [facility] Address [address] [place] [address] Care Team Providers Care Asbestos Removal Supervisor Name Role Phone Giovanna Kong DO Primary Care Provider [phone] Reason for Visit * Reason Onset Date Comments SAMPLES 10/19/2024 Encounter Details Date Type Department Care Team (Late st Contact Info) Description 10/19/2024 Telephone [facility] [address] [place] [address] Giovanna Kong DO [address] [place] [address] SAMPLES Social History Tobacco Use Types Packs/Day Years [...] on file documented as of this encounter Miscellaneous Notes * Telephone Encounter - Jackie Carias MA - 10/26/2024 11:21 AM EDT HUB RELAY: Why is he requesting samples? Samples are typically one time use. We can send in a prescription. Lvm * Telephone Encounter - Jackie Carias MA - 10/19/2024 3:30 PM EDT HUB RELAY: Why is he requesting samples? Samples are typically one time use. We can send in a prescription. * Telephone Encounter - Opal Valdovinos RegSched Rep - 10/19/2024 12:36 PM EDT Caller Name: AlvaradocheikhWalter Jr. Relationship: Self Best Contact Number: [phone] Patient is requesting samples of Wyqngqmurpr-Eoipvrafi-Wflwkn (Trelegy Ellipta) 100-62.5-25 MCG/ACT inhaler How many days of medication do you have left? 0 Additional Information: documented in this encounter Plan of Treatment Upcoming Encounters Date Type Department Care Team (Late st Contact Info) Description 02/08/2025 12:15 PM EST Office Visit [facility] [address] [place] [id number] Giovanna Kong DO [address] [place] [address] documented as of this encounter Visit Diagnoses Not on filedocumented in this encounter Care Teams Asbestos Removal Supervisor Relationship Specialty Start Date End Date Giovanna Kong DO [address] [place] [address] PCP - General Family Medicine 07/03/17 documented as of this encounter
--- OUTSIDE RECORDS SUMMARY | 2024-11-16 13:08 | XMS_ITS | Encounter Summary ---
Author Organization [facility] Address [address] [place] [address] Care Team Providers Care Humidifier Attendant Name Role Phone Unavailable Primary Care Provider Unavailabl e Encounter Details Date Type Department Care Team (Late st Contact Info) Description 08/01/2021 Community Orders [facility] [address] [place] [address] Giovanna Kong, DO [address] [address] Type 2 diabetes mellitus without complication, without long-term current use of insulin ([facility]) (Primary Dx) Social History Tobacco Use Types Packs/Day Years Used Date Smoking Tobacco: Never Assessed Sex and Gender Information Value Date Recorded Sex Assigned at Not on file Legal Sex Male 8:08 PM EDT Gender Identity Not on file Sexual Orientation Not on file documented as of this encounter Plan of Treatment Not on file documented as of this encounter Visit Diagnoses Diagnosis Type 2 diabetes mellitus without complication, without long-term current use of insulin- Primary documented in this encounter
--- OUTSIDE RECORDS SUMMARY | 2024-11-16 13:08 | XMS_ITS | Encounter Summary ---
Author Organization [facility] Address [address] [place] [id number] Care Team Providers Care Licensed Professional Counselor Name Role Phone LuannGiovanna ratliff Sarah IRENE Primary Care Provider [phone] Reason for Visit * Reason Comments Med Refill Encounter Details Date Type Department Care Team (Late Contact Info) Description 11/12/2024 Refill [facility] [address] [place] [address] Dana Perla, REPAIR ORDER CLERK [address] [place] [address] Swelling of lower extremity Social History Tobacco Use Types Packs/Day Years [...] Encounters Date Type Department Care Team (Late Contact Info) Description 02/08/2025 12:15 PM EST Office Visit [facility] [address] [place] [address] Giovanna Kong DO [address] [place] [place] [address] documented as of this encounter Visit Diagnoses Diagnosis Swelling of lower extremity documented in this encounter Care Teams Licensed Professional Counselor Relationship Specialty Start Date End Date Giovanna Kong DO [address] [place] [address] PCP - General Family Medicine 07/03/17 documented as of this encounter
--- OUTSIDE RECORDS SUMMARY | 2024-11-16 13:08 | XMS_ITS | Encounter Summary ---
Author Organization [facility] Address [address] [place] [address] Care Team Providers Care Scale Clerk Name Role Phone Giovanna Kong DO Primary Care Provider Reason for Visit * Reason Comments Med Refill Encounter Details Date Type Department Care Team (Late st Contact Info) Description 03/18/2024 Refill [facility] [address] [place] [address] Giovanna Kong DO [address] [place] [address] Bilateral swelling of feet and ankles; Essential hypertension Social History Tobacco Use Types Packs/Day Years Used Date Smoking Tobacco: Former Cigarettes Q uit: 2020 Smokeless Tobacco: Never Alcohol Use Standard Drinks/Week Comments No 0 (1 standard drink = 0.6 oz pur e alcohol) PHQ-2 Answer Date Recorded Retired PHQ-9: Brief Depression Severity Measure Score 0 08/22/2022 PHQ-2 Answer Date Recorded Retired PHQ-9: Brief Depression Severity Measure Score 0 04/23/2023 Sex and Gender Information Value Date Recorded Sex Assigned at Not on file Legal Sex Male 2:30 PM EST Gender Identity Not on file Sexual Orientation Not on file documented as of this encounter Miscellaneous Notes * Telephone Encounter - Maribell uGrrola RegSched Rep - 03/18/2024 12:35 PM EST LEFT VOICEMAIL TO SCHEDULE APPOINTMENT HUB TO RELAY documented in this encounter Plan of Treatment Upcoming Encounters Date Type Department Care Team (Late st Contact Info) Description 02/08/2025 12:15 PM EST Office Visit [facility] [address] [place] [address] Giovanna Kong DO [address] [place] [address] documented as of this encounter Visit Diagnoses Diagnosis Bilateral swelling of feet and ankles Essential hypertension Unspecified essential hypertension documented in this encounter Care Teams Scale Clerk Relationship Specialty Start Date End Date Giovanna Kong DO [address] [place] [address] PCP - General Family Medicine 07/03/17 documented as of this encounter
--- OUTSIDE RECORDS SUMMARY | 2024-11-16 13:08 | XMS_ITS | Clinical Summary ---
Author Organization [facility] Address [address] [place] [address] Care Team Providers Care Automatic Drill Operator Name Role Phone Unavailable Primary Care Provider Unavailabl e Social History Tobacco Use Types Packs/Day Years Used Date Smoking Tobacco: Never Assessed Sex and Gender Information Value Date Recorded Sex Assigned at Not on file Legal Sex Male 8:08 PM EDT Gender Identity Not on file Sexual Orientation Not on file Plan of Treatment Not on file
--- OUTSIDE RECORDS SUMMARY | 2024-11-16 13:08 | XMS_ITS | Encounter Summary ---
Author Organization [facility] Address [address] [place] [id number] Care Team Providers Care Dry Cleaning Supervisor Name Role Phone Giovanna Kong DO Primary Care Provider [phone] Encounter Details Date Type Department Care Team (Latest Contact Info) Description 11/09/2024 Travel Social History Tobacco Use Types Packs/Day [...] Description 02/08/2025 12:15 PM EST Office Visit [facility] [address] [address] Giovanna Kong DO [address] [address] documented as of this encounter Visit Diagnoses Not on filedocumented in this encounter Care Teams Dry Cleaning Supervisor Relationship Specialty Start Date End Date Giovanna Kong DO [address] [place] [address] PCP - General Family Medicine 07/03/17 documented as of this encounter
--- OUTSIDE RECORDS SUMMARY | 2024-11-16 13:08 | XMS_ITS | Encounter Summary ---
Author Organization [facility] Address [address] [place] [id number] Care Team Providers Care Furniture Sander Name Role Phone Giovanna Kong DO Primary Care Provider [phone] Encounter Details Date Type Department Care Team (Late st Contact Info) Description 10/06/2024 Results Follow-Up [facility] [address] [place] [address] Dana Perla, SHIP FITTER [address] [place] [address] Social History Tobacco Use Types Packs/Day Years [...] Description 02/08/2025 12:15 PM EST Office Visit [facility] [address] [place] [address] Giovanna Kong DO [address] [place] [address] documented as of this encounter Visit Diagnoses Not on filedocumented in this encounter Care Teams Furniture Sander Relationship Specialty Start Date End Date Giovanna Kong DO [address] [place] [address] PCP - General Family Medicine 07/03/17 documented as of this encounter
--- OUTSIDE RECORDS SUMMARY | 2024-11-16 13:08 | XMS_ITS | Encounter Summary ---
Author Organization [facility] Address [address] [place] [id number] Care Team Providers Care Long Filler Cigar Roller Machine Name Role Phone Giovanna Kong DO Primary Care Provider [phone] Reason for Visit * Reason Comments Med Refill Encounter Details Date Type Department Care Team (Late Contact Info) Description 01/08/2020 Refill [facility] [address] [place] [address] Giovanna Kong DO [address] [place] [address] Uncontrolled type 2 diabetes mellitus with hyperglycemia Social History Tobacco Use Types Packs/Day Years Used Date Smoking Tobacco: Former Smokeless Tobacco: Never Alcohol Use Standard Drinks/Week Comments No 0 (1 standard drink = 0.6 oz pur e alcohol) PHQ-2 Answer Date Recorded PHQ-2 Score 0 02/17/2018 Sex and Gender Information Value Date Recorded Sex Assigned at Not on file Legal Sex Male 2:30 PM EST Gender Identity Not on file Sexual Orientation Not on file documented as of this encounter Plan of Treatment Upcoming Encounters Date Type Department Care Team (Late Contact Info) Description 02/08/2025 12:15 PM EST Office Visit [facility] [address] [place] [address] Giovanna Kong DO [address] [place] [address] documented as of this encounter Visit Diagnoses Diagnosis Uncontrolled type 2 diabetes mellitus with hyperglycemia documented in this encounter Care Teams Long Filler Cigar Roller Machine Relationship Specialty Start Date End Date Giovanna Kong DO [address] [place] [address] PCP - General Family Medicine 07/03/17 documented as of this encounter
--- OUTSIDE RECORDS SUMMARY | 2024-11-16 13:08 | XMS_ITS | Encounter Summary ---
Author Organization [facility] Address [address] [place] [id number] Care Team Providers Care Mainspring Reverse Winder Name Role Phone LuannGiovanna ratliff Sarah IRENE Primary Care Provider [phone] Reason for Visit * Reason Comments Med Refill Encounter Details Date Type Department Care Team (Late Contact Info) Description 10/14/2024 Refill [facility] [address] [place] [address] Dana Perla, SERVICE TESTER [address] [place] [address] Swelling of lower extremity Social [...] EST Office Visit [facility] [address] [place] [address] Giovanna Kong DO [address] [place] [address] documented as of this encounter Visit Diagnoses Diagnosis Swelling of lower extremity documented in this encounter Care Teams Mainspring Reverse Winder Relationship Specialty Start Date End Date Giovanna Kong DO [address] [place] [address] PCP - General Family Medicine 07/03/17 documented as of this encounter
--- OUTSIDE RECORDS SUMMARY | 2024-11-16 13:08 | XMS_ITS | Clinical Summary ---
Author Organization [facility] Address [address] [place] [address] Care Team Providers Care Street Light Inspector Name Role Phone Giovanna Kong DO Primary Care Provider Allergies Active Allergy Reactions Criticality Noted Date Comments Penicillins Rash Low 07/03/2017 Medications UREA 20 INTENSIVE HYDRATING 20 % cream 1 Application Daily. 5 019 Active buprenorphine-na loxone (SUBOXONE) 8-[address] 2 FILM(S) UNDER TONGUE ONCE A DAY DIRECTED 021 Active cetirizine (zyrTEC) 10 MG tabletIndication s:Environmental allergies Take 1 tablet by mouth Daily. 90 tablet 1 022 Active Additional Information Patient taking differently:10 mg OralDaily PRN, Informant: Self, Reported on 11/09/2024 albuterol (ACCUNEB) 1.25 MG/3ML nebulizer solution Take 3 mL by nebulization Every 6 (Six) Hours As Needed for Shortness of Air. 120 mL 2 024 Active Jardiance 25 MG tablet tabletIndication s:Uncontrolled type 2 diabetes mellitus with hyperglycemia TAKE 1 TABLET BY MOUTH EVERY DAY 90 tablet 3 024 Active metFORMIN (GLUCOPHAGE) 1000 MG tabletIndication s:Type 2 diabetes mellitus without complication, without long-term current use of insulin TAKE 1 TABLET BY MOUTH TWICE A DAY WITH MEALS 60 tablet 5 024 Active tadalafil (Cialis) 10 MG tabletIndication s:Erectile dysfunction, unspecified erectile dysfunction type Take 1 tablet by mouth Daily As Needed for Erectile Dysfunction. 10 tablet 5 024 Active Fluticasone-Umec lidin-Vilant (Trelegy Ellipta) 100-62.5-25 MCG/ACT inhalerIndicatio ns:Chronic obstructive pulmonary disease, unspecified COPD type Inhale 1 puff Daily. 60 each 5 024 Active glucose monitor monitoring kitIndications:T ype 2 diabetes mellitus without complication, without long-term current use of insulin Check glucose daily 1 each 025 Active glucose blood test stripIndications :Type 2 diabetes mellitus without complication, without long-term current use of insulin Check glucose daily 25 each 025 Active Lancet Device miscIndications: Type 2 diabetes mellitus without complication, without long-term current use of insulin Check glucose daily 25 each 025 Active rosuvastatin (Crestor) 10 MG tablet Take 1 tablet by mouth Every Night. 90 tablet 3 025 Active Blood Glucose Monitoring Suppl (Accu-Chek Guide) w/Device kit CHECK GLUCOSE DAILY 025 Active Accu-Chek Softclix Lancets lancets CHECK GLUCOSE DAILY 025 Active albuterol sulfate HFA 108 (90 Base) MCG/ACT inhalerIndicatio ns:Chronic obstructive pulmonary disease, unspecified COPD type Inhale 2 puffs Every 4 (Four) Hours As Needed for Wheezing or Shortness of Air. 8.5 g 5 025 Active glipizide (GLUCOTROL) 5 MG tabletIndication s:Type 2 diabetes mellitus without complication, without long-term current use of insulin Take 1 tablet by mouth 2 (Two) Times a Day Before Meals. 60 tablet 5 025 Active ipratropium-albu terol (DUO-NEB) 0.5-2.5 mg/3 ml nebulizerIndicat ions:Acute pneumonia,COPD with exacerbation Take 3 mL by nebulization Every 4 (Four) Hours As Needed for Wheezing. 360 mL 1 025 Active lisinopril (PRINIVIL,ZESTRI L) 10 MG tabletIndication s:Essential hypertension TAKE ONE TABLET BY MOUTH ONCE DAILY 90 tablet 1 025 Active triamterene-hydr ochlorothiazide (MAXZIDE-25) 37.5-25 MG per tabletIndication s:Bilateral swelling of feet and ankles TAKE ONE TABLET BY MOUTH ONCE DAILY 30 tablet 3 Active gentamicin (GARAMYCIN) 0.1 % ointment Apply 1 Application topically to the appropriate area as directed. Active furosemide (LASIX) 20 MG tabletIndication s:Swelling of lower extremity TAKE 2 TABLETS BY MOUTH DAILY. 60 tablet Active Semaglutide,0.25 or 0.5MG/DOS, (Ozempic, 0.25 or 0.5 MG/DOSE,) 2 MG/3ML solution pen-injector Inject 0.25 mg under the skin into the appropriate area as directed 1 (One) Time Per Week. Increase dose to 0.5 mg after 4 doses of 0.25 mg 3 mL 2 Active budesonide-formo terol (SYMBICORT) 160-4.5 MCG/ACT inhaler 2024 Discontinued(A lternate therapy) furosemide (LASIX) 20 MG tabletIndication s:Swelling of lower extremity TAKE 2 TABLETS BY MOUTH DAILY. 60 tablet 025 2024 Discontinued Active Problems Problem Noted Date Diagnosed Date COPD with exacerbation 08/22/2022 Assessment & Plan (08/22/2022 11:12 AM EDT): Current symptoms include acute dyspnea, cough productive of brown sputum in small amounts and wheezing. Symptoms have been present since about a month ago and have been gradually worsening. He denies dyspnea, cough, wheezing and colored sputum. Associated symptoms include chest pain, shortness of breath and wheezing. This episode appears to have been triggered by upper respiratory infection. Treatments tried for the current exacerbation: albuterol inhaler. The patient has been having similar episodes for approximately 2 months. Uncontrolled type 2 diabetes mellitus with hyper glycemia 11/13/2018 Bilateral swelling of feet and ankles 11/13/2018 Venous stasis dermatitis of both lower extremiti es 11/13/2018 Asymptomatic varicose veins of both lower extrem ities 11/13/2018 Chronic right shoulder pain 08/02/2018 Erectile dysfunction 07/25/2017 Chronic hepatitis C without hepatic coma 018 Elevated liver enzymes 07/17/2017 Diabetes mellitus type II, controlled 07/03/2017 Essential hypertension 07/03/2017 Class 1 obesity due to exces s calories without serious comorbidity with body mass index (BMI) of 31.0 to 31.9 in adult 07/03/2017 Psoriatic arthritis 07/03/2017 Simple chronic bronchitis 07/03/2017 Encounters Date Type Department Care Team Description 11/12/2024 Results Follow-Up [facility] [address] [place] [address] Giovanna Kong DO 11/12/2024 Refill [facility] [address] [place] [address] Daan Perla APRN Swelling of lower extremity 11/09/2024 12:00 PM EDT Office Visit [facility] [address] [place] [address] Giovanna Kong DO Essential hypertension (Primary Dx); Type 2 diabetes mellitus without complication, without long-term current use of insulin; Mixed hyperlipidemia; Easy bruisability; Bilateral swelling of feet and ankles; Elevated uric acid in blood; Abnormal echocardiogram 11/09/2024 Travel 10/19/2024 Telephone [facility] [address] [place] [address] Giovanna Kong DO SAMPLES 10/16/2024 Refill [facility] [address] [place] [address] Dana Perla, SOCIAL MEDIA DESIGNER Bilateral swelling of feet and ankles 10/14/2024 Refill [facility] [address] [place] [address] Dana Perla, GINGER Swelling of lower extremity 10/06/2024 Results Follow-Up [facility] [address] [place] [address] Dana Perla APRN 09/22/2024 11:30 AM EDT Office Visit [facility] [address] [place] [address] Dana Perla APRN Follow-up exam after treatment (Primary Dx); Swelling of lower extremity; Acute gout involving toe of right foot, unspecified cause; Acute pneumonia 09/22/2024 Travel 09/16/2024 Refill [facility] [address] [place] [address] Dana Perla APRN Acute pneumonia; COPD with exacerbation 09/15/2024 10:30 AM EDT Office Visit [facility] [address] [place] [address] Dana Perla, GINGER Acute pneumonia (Primary Dx); COPD with exacerbation; Swelling of lower extremity; Abrasion of right great toe, initial encounter; Bilateral swelling of feet and ankles; Essential hypertension; Type 2 diabetes mellitus without complication, without long-term current use of insulin; Mixed hyperlipidemia 09/15/2024 Refill [facility] [address] [place] [address] Giovanna Kong, Essential hypertension 09/15/2024 Travel 09/14/2024 Refill [facility] [address] [place] [address] Giovanna Kong DO Swelling of lower extremity 08/26/2024 Telephone [facility] [address] [place] [address] Giovanna Kong, Results from Last 3 Months Immunizations Immunization Administration Dates Next Due COVID-19 (MODERNA) 1st,2nd,3 rd Dose Monovalent 11/10/2021,09/08/2020,08/03/2020 Flu Vaccine Intradermal Quad 18-64YR 01/24/2018 Fluzone (or Fluarix & Flulav al for VFC) >6mos 02/07/2022,01/19/2021,01/11/2020,12/19 Fluzone Quad >6mos (Multi-dose) 01/19/2021 Hep A / Hep B 03/09/2018,01/24/2018 Influenza Injectable Mdck Pf Quad 01/24/2018 Pneumococcal Conjugate 20-Va lent (PCV20) 04/06/2022 Pneumococcal Polysaccharide (PPSV23) 12/19/2016 flucelvax quad pfs =>4 YRS 03/11/2019 Family History Medical History Relation Name Comments Arthritis Mother Diabetes Mother Relation Name Status Comments Mother Social History Tobacco Use Types Packs/Day Years Used Date Smoking Tobacco: Former Cigarettes Q uit: 2020 Passive Smoke Exposure: Past Smokeless Tobacco: Never Tobacco Cessation:Counseling Given: No Alcohol Use Standard Drinks/Week Comments No 0 [...] on file Sexual Orientation Not on file Last Filed Vital Signs Vital Sign Reading [...] Mass Index 31.12 11/09/2024 11:22 AM EDT Plan of Treatment Upcoming Encounters Date Type Department Care Team (Late st Contact Info) Description 02/08/2025 12:15 PM EST Office Visit [facility] [address] [facility] [place] [address] Giovanna Kong, [address] [place] [address] Health Maintenance Due Date Last Done Comments TDAP/TD VACCINES (1 - Tdap) 1979 COLOGUARD 2005 COLON CANCER SCREENING [address] COLONOGRAPHY 2005 FECAL OCCULT BLOOD TEST 2005 FIT Testing (1 year) 2005 ZOSTER VACCINE (1 of 2) 2010 DIABETIC EYE EXAM 02/06/2018 02/06/2017 (Patient-Reported (Performed Externally)) Hepatitis B (3 of 3 - Hep B Twinrix risk 3-dose series) 08/07/2018 03/09/2018, 01/24/2018 COVID-19 Vaccine ( season) 2024 11/10/2021, 09/08/2020, 08/03/2020 Postponed from 12/08/2023 (Product Unavailable) INFLUENZA VACCINE 01/06/2025 02/07/2022, , 01/19/2021, Additional history exists URINE MICROALBUMIN-CREATININE RATIO (uACR) 04/28/2025 04/28/2024 HEMOGLOBIN A1C 05/12/2025 11/09/2024, 09/06, 04/20/2024, Additional history exists ANNUAL PHYSICAL 08/10/2025 08/10/2024 LIPID PANEL 09/15/2025 09/15/2024, 04/08, 10/14/2023, Additional history exists COLONOSCOPY 07/04/2027 07/03/2017 (Declined) COLORECTAL CANCER SCREENING 07/04/2027 DIABETIC FOOT EXAM Discontinued 07/09/2017 (Patient-Reported (Performed Externally)) HEPATITIS C SCREENING Completed 04/25/2018 , 01/14/2018, 01/14/2018, Additional history exists Pneumococcal Vaccine 50+ Completed 04/06/2022, 12/07 Procedures Procedure Name Priority Date/Time Associated Diagnosis Comments URIC ACID Routine 11/09/2024 12:51 PM EDT [...] and ankles Elevated uric acid in blood PROTIME-INR Routine 11/09/2024 12:51 PM EDT Essential [...] ankles Elevated uric acid in blood CBC AND DIFFERENTIAL Routine 09/15/2024 11:06 AM EDT Essential hypertension Type 2 diabetes mellitus without complication, without long-term current use of insulin LIPID PANEL W/ CHOL/HDL RATIO Routine 09/15/2024 11:06 AM EDT Mixed hyperlipidemia COMPREHENSIVE METABOLIC PANEL Routine 09/15/2024 11:06 AM EDT Essential hypertension Type 2 diabetes mellitus without complication, without long-term current use of insulin HEMOGLOBIN A1C Routine 09/15/2024 11:06 AM EDT Type 2 diabetes mellitus without complication, without long-term current use of insulin URIC ACID Routine 09/15/2024 11:06 AM EDT Swelling of lower extremity Abrasion of right great toe, initial encounter POCT MICROALBUMIN Routine 04/28/2024 12: 13 PM EST Type 2 diabetes mellitus without complication, without long-term current use of insulin SCANNED - INFLUENZA 01/19/2021 HEPATITIS C RNA, QUANTITATIVE, PCR (GRAPH) Routine 01/14/2018 4:43 PM EDT from Last 3 Months or Most Recently Relevant to Health Maintenance Results * Protime-INR (11/09/2024 12:51 PM EDT) INR 0.9 0.9 - 1.2 [facility] [...] 11/10/2024 8:11 AM EDT Performed at: - [address] [id number] Building Serviceman: Benson Garsia PhD, Phone: [phone] Patient Fasting: N us Giovanna Kong DO LAB BLOOD ORDERABLES Final Result [facility] [employer] [facility] (AMBULATORY) [address] [place] [address], [facility] [address] [place] [address], * CBC (No Diff) (11/09/2024 12:51 PM EDT) WBC 7.4 3.4 - 10.8 x10E3/uL [facility] [...] - 11/10/2024 8:11 AM EDT Performed at: [address] [id number] Building Serviceman: Benson Garsia PhD, Phone: [phone] Patient Fasting: N Giovanna [employer] LAB BLOOD ORDERABLES Final Result Performing Organization Address City/[facility]/ZIP Co de Phone Number [facility] (AMBULATORY) [address] [place] [address], [place] [phone] [facility] [address] [place] [address], [place] [phone] * Uric acid (11/09/2024 12:51 PM EDT) Only the most recent of2 resultswithin the time period is included. [facility] Uric Acid 7.4 3.8 - 8.4 mg/dL [facility] Comment:Therapeutic target f or gout patients: <6.0 Blood 11/09/2024 12:5 1 PM EDT 11/09/2024 Narrative [facility] ([facility]) - 11/10/2024 8:11 AM EDT Performed at: [address] [id number] Building Serviceman: Benson Garsia PhD, Phone: [phone] Patient Fasting: N Giovanna Sarah [employer] LAB BLOOD ORDERABLES Final Result Performing Organization Address City/[facility]/ZIP Co de Phone Number [facility] (AMBULATORY) [address] [place] [address], [facility] [address] [place] [address], [place] [phone] * (ABNORMAL) Hemoglobin A1c (11/09/2024 12:51 PM EDT) Only the most recent of2 resultswithin the time period is included. [facility] Hemoglobin A1C 9.1(H) 4.8 - 5.6 % [facility] Comment: Prediabetes: 5.7 - 6.4 Diabetes: >6.4 Glycemic control for adults with diabetes: <7.0 Blood 11/09/2024 12:5 1 PM EDT 11/09/2024 Narrative [facility] (AMBULATORY) - 11/10/2024 8:11 AM EDT Performed at: - [address] [id number] Building Serviceman: Benson Garsia PhD, Phone: [phone] Patient Fasting: N Giovanna Kong DO LAB BLOOD ORDERABLES Final Result [facility] [address] [place] [address], [facility] [address] [place] [address], * (ABNORMAL) Comprehensive Metabolic Panel (11/09/2024 12:51 PM EDT) Only the most recent of2 resultswithin the time period is included. [facility] Glucose 205(H) 70 - 99 mg/dL [facility] [...] 12:5 1 PM EDT 11/09/2024 Narrative [facility] (AMBULATORY) - 11/10/2024 8:11 AM EDT Performed at: 01 - [address] [id number] Building Serviceman: Benson Garsia PhD, Phone: [phone] Patient Fasting: N Giovanna Kong DO LAB BLOOD ORDERABLES Final Result [facility] [employer] (AMBULATORY) [address] [place] [address], [facility] [address] [place] [address], * (ABNORMAL) Lipid Panel w/ Chol/HDL Ratio (09/15/2024 11:06 AM EDT) Total Cholesterol 192 100 - 199 mg/dL [facility] Triglycerides 71 0 - 149 mg/dL [facility] HDL Cholesterol 63 >39 mg/dL [facility] VLDL Cholesterol Noe 13 5 - 40 mg/dL [facility] LDL Chol Calc (NIH) 116(H) 0 - 99 mg/dL [facility] Chol/HDL Ratio 3.0 0.0 - 5.0 ratio [facility] Comment: T. Chol/HDL Ratio Men Women 1/2 Avg.Risk 3.4 3.3 Avg.Risk 5.0 4.4 2X Avg.Risk 9.6 7.1 3X Avg.Risk 23.4 11.0 Blood 09/15/2024 11:0 6 AM EDT 09/15/2024 Narrative [facility] (AMBULATORY) - 09/16/2024 9:10 AM EDT Performed at: 01 - [facility] [address] [place] [id number] Building Serviceman: Benson Garsia PhD, Phone: [phone] Patient Fasting: Y Dana Perla SOCIAL MEDIA DESIGNER LAB BLOOD ORDERABLES Final R esult [facility] (AMBULATORY) [address] [place] [address], [facility] [address] [place] [address], * (ABNORMAL) CBC & Differential (09/15/2024 11:06 AM EDT) WBC 12.4(H) 3.4 - 10.8 x10E3/uL [facility] RBC 4.59 4.14 - 5.80 x10E6/uL [facility] Hemoglobin 14.5 13.0 - 17.7 g/dL [facility] Hematocrit 44.0 37.5 - 51.0 % [facility] MCV 96 79 - 97 fL [facility] MCH 31.6 26.6 - 33.0 pg [facility] MCHC 33.0 31.5 - 35.7 g/dL [facility] RDW 12.8 11.6 - 15.4 % [facility] Platelets 168 150 - 450 x10E3/uL [facility] Neutrophil Rel % 76 Not Estab. % [facility] Lymphocyte Rel % 12 Not Estab. % [facility] Monocyte Rel % 12 Not Estab. % [facility] Eosinophil Rel % 0 Not Estab. % [facility] Basophil Rel % 0 Not Estab. % [facility] Neutrophils Absolute 9.4(H) 1.4 - 7.0 x10E3/uL [facility] Lymphocytes Absolute 1.5 0.7 - 3.1 x10E3/uL [facility] Monocytes Absolute 1.4(H) 0.1 - 0.9 x10E3/uL [facility] Eosinophils Absolute 0.0 0.0 - 0.4 x10E3/uL [facility] Basophils Absolute 0.0 0.0 - 0.2 x10E3/uL [facility] Immature Granulocyte Rel % 0 Not Estab. % [facility] Immature Grans Absolute 0.0 0.0 - 0.1 x10E3/uL [facility] Blood 09/15/2024 11:0 6 AM EDT 09/15/2024 Narrative [facility] ([facility]) - 09/16/2024 9:10 AM EDT Performed at: 01 - [facility] [id number] Building Serviceman: Benson Garsia PhD, Phone: [phone] Patient Fasting: Y Dana Perla SOCIAL MEDIA DESIGNER LAB BLOOD ORDERABLES Final R esult Performing Organization Address City/[facility]/ZIP Co de Phone Number [facility] (AMBULATORY) [address] [place] [address], [place] [phone] [facility] [address] [place] [address], [place] [phone] * POCT microalbumin (04/28/2024 12:13 PM EST) Microalbumin, Urine 10 mg/L [facility] Comment:A:C 30 mg/g Creatinine, Urine 100 mg/dL [facility] Lot Number [id number] [facility] Expiration Date 03/07/2025 [facility] Microalbumin/Cr eatinine Ratio 30 mg/g [facility] Urine 04/28/2024 12:1 3 PM EST us Dana Perla SOCIAL MEDIA DESIGNER POINT OF CARE TEST ORDERABLE S Edited Result - Final [facility]
[address] [place] [address], [place] [phone] * SCANNED - INFLUENZA (01/19/2021) [facility] CHART REVIEW TABS Final Re sult * Hepatitis C RNA, Quantitative, PCR (graph) (01/14/2018 4:43 PM EDT) Hepatitis C Quantitation 594,000 IU/mL [facility] HCV log10 5.774 log10 IU/mL [facility] Test Information Comment [facility] Comment:The quantitative ran ge of this assay is 15 IU/mL to 100 million IU/mL. 01/14/2018 4:43 PM EDT 01/14/2018 Narrative [facility] (AMBULATORY) - 01/17/2018 3:15 PM EDT Performed at: [address] [place] [id number] Building Serviceman: Walter Hubbard MD, Phone: [phone] Patient Fasting: N Sathish Moncada MD LAB BLOOD ORDERABLES Final Result [facility] (AMBULATORY) [address] [place] [address], [place] [phone] [facility] [address] [place] [address], [place] [phone] from Last 3 Months or Most Recently Relevant to Health Maintenance Insurance [facility] PPO Member Subscriber Plan / Payer (Ef fective 2022-Present) Name:Walter Davila Jr. Relation to Subscriber:Spouse Name:Marjorie Davila Date of :1970 (Home) Address: [address] [place] [place] [address] Payer ID:[id number] (IC) Type:Not on file Address: [address] [place] [id number] Care Teams Street Light Inspector Relationship Specialty Start Date End Date Giovanna Kong DO [address] [place] [address] PCP - General Family Medicine 07/03/17
--- OUTSIDE RECORDS SUMMARY | 2024-11-16 13:08 | XMS_ITS | Encounter Summary ---
Author Organization [facility] Address [address] [place] [address] Care Team Providers Care Assistant Wrestling Coach Name Role Phone Giovanna Kong DO Primary Care Provider Encounter Details Date Type Department Care Team (Late st Contact Info) Description 11/12/2024 Results Follow-Up [facility] [address] [facility] [address] Giovanna Kong DO [address] [place] [address] Social History Tobacco Use Types [...] encounter Miscellaneous Notes * Telephone Encounter - Odalys Colunga MA - 11/16/2024 7:55 AM EDT Sample for pt is in fridge. Pt notified to come lease picker. documented in this encounter Plan of Treatment Upcoming Encounters Date Type Department Care Team (Late st Contact Info) Description 02/08/2025 12:15 PM EST Office Visit [facility] [address] [place] [address] Giovanna Kong DO [address] [place] [address] documented as of this encounter Visit Diagnoses Not on filedocumented in this encounter Care Teams Assistant Wrestling Coach Relationship Specialty Start Date End Date Giovanna Kong DO [address] [place] [address] PCP - General Family Medicine 07/03/17 documented as of this encounter
--- NOTE | 2024-11-16 13:12 | CA_ITS ---
APPROVED REPORT EXAM: Limited 2D Echocardiogram with contrast Coke Loader: Lidia Mcdonough RDCS Ht: 6 ft 4 in Wt: 245lbs BSA: 2.41 BP: 116/60 mmHg Indications: LIMITED WITH BUBBLES Other Information Study Quality: Fair Conclusion This is a limited TTE to evaluate for interatrial shunt. Limited windows are obtained. Agitated saline administration is performed at rest, as well as with Valsalva and sniff maneuvers. The left ventricle is normal in size. There is increased LV wall thickness. There is normal global LV systolic function. No regional wall motion abnormalities are present. LVEF is 60-65%. The right ventricle is mildly dilated with normal RV function. Agitated saline administration demonstrates no evidence of interatrial shunt. Electronically signed by : Eugenia Sesay MD 11/16/2024 14:04:08
== END 2024-11-16 23:59 | disposition home or self-care (01) ==
LOC: RT 13:04
PROVIDERS: PCP Family Medicine; Visit Provider Family Medicine
DX: I51.7 Cardiomegaly (principal); R93.1 Abnormal findings on diagnostic imaging of heart and coronary circulation
CPT/HCPCS: 93308